=== PATIENT | female | born 1955 | race Caucasian/White ===

== ENCOUNTER 2016-09-30 15:58 | Emergency (ER) | payer OTHER ==
[~2016-09-30] VITALS: Ht 165.1 cm; Wt 46.3 kg
[~2016-09-30 15:58] MED LIST: ADVAIR 250-501 EACH INH; ADVAIR DISKUS 21 DSK PO; ALENDRONATE SOD70 M1 PO; ALPRAZOLAM0.5 M4 PO; ALPRAZOLAM0.5 MG PO; ALPRAZOLAM1 M2 PO; ASPIRIN81 M4 PO; ATIVAN0.5 M1 PO; BUSPIRONE HCL15 M1 PO; BUSPIRONE HCL15 MG PO; CARISOPRODOL350 MG PO; FENTANYL TR50 MCG/HR TOP; FLEXERIL10 MG PO; K-DUR20 MEQ PO; LEVOTHYROXIN0.075 M1 PO; LEVOTHYROXINE75 MCG PO; NAPROXEN250 M1 PO; NICOTINE T14 MG/24 H TOP; OMEPRAZOLE20 M2 PO; OXYCODONE HCL10 M2 PO; OXYCODONE HYDRO10 M1 PO; OXYCODONE HYDRO30 MG PO; PERCOCET 325 MG1 TA2 PO; PERCOCET 5-3251 EACH PO; PROAIR HFA0.09 MG/Ac PO; QUETIAPINE FUM200 M1 PO; QUETIAPINE FUMA50 MG PO; SEROQUEL (MONO200 MG PO; SPIRIVA 18 MCG18 MCG INH; TRAMADOL50 MG PO; TYLENOL500 MG PO; VENTOLIN HFA18 GM INH; VITAMIN D31000 UNI2 PO; ZOFRAN4 M1 PO; ZOFRAN4 M1 SL
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
[2016-09-30 16:20] VITALS: BP 108/55
[2016-09-30 17:17] LABS: ABSOLUTE BASOPHIL COUNT 0.2 /CUMM (0.0-0.2); ABSOLUTE EOSINOPHIL COUNT 0.2 /CUMM (0.0-0.7); ABSOLUTE GRANULOCYTE CT 5.9 /CUMM (1.4-6.5); ABSOLUTE LYMPH COUNT 2.8 /CUMM (1.2-3.4); ABSOLUTE MONOCYTE COUNT 0.6 /CUMM (0.10-0.60); BASOPHIL % 2.2 % (0.0-2.0); EOSINOPHIL % 1.9 % (0-5); GRANULOCYTE % 60.9 % (42.2-75.2); HEMATOCRIT 46.2 % (37-47); MEAN CORPUSCULAR HGB 33.5 PG (27.0-31.0); MEAN CORPUSCULAR HGB CONC 33.5 G/DL (33.0-37.0); MEAN CORPUSCULAR VOLUME 100.1 FL (81.0-99.0); MEAN PLATELET VOLUME 7.9 FL (7.4-10.4); PLATELET COUNT 321 /CUMM (130-400); RBC DISTRIBUTION WIDTH 14.9 % (11.5-14.5); RED BLOOD CELL CT 4.61 /CUMM (4.20-5.40); WHITE BLOOD CELL COUNT 9.7 /CUMM (4.8-10.8)
--- NOTE | 2016-09-30 17:32 | RADIOLOGY REPORT ---
EXAMINATION: XR HIP, LEFT CLINICAL INFORMATION: Left femur fracture. COMPARISON: MRI from today. TECHNIQUE: Frontal view of the pelvis with 2 additional views of the left hip. of the left hip. FINDINGS: The abnormal signal seen at the base of the left femoral neck which likely corresponds to a trabecular fracture has no corresponding finding visualized on this set of radiographs. No displaced fractures seen. No cortical disruption. The femoral heads are well-seated within their respective acetabula. There is irregularity of the left femoral head consistent with chronic degenerative change and possibly a component of avascular necrosis. Mild degenerative changes at the right hip. The pelvic ring is intact. The sacroiliac joints and pubic symphysis are intact. The bowel gas pattern is unremarkable. IMPRESSION: The trabecular fractures seen at the base of the left femoral neck on the associated MRI has no corresponding finding on this radiograph. No displaced fracture or cortical disruption. Chronic degenerative changes.
[2016-09-30 17:52] LABS: PT 9.9 SEC (9.4-12.5); PTT 34 SEC (25-37)
== END 2016-09-30 18:44 | disposition left against medical advice (07) ==
LOC: ERH 15:58
PROVIDERS: Emergency Medicine
DX: S72.045A Nondisplaced fracture of base of neck of left femur, initial encounter for closed fracture (principal); E03.9 Hypothyroidism, unspecified; J44.9 Chronic obstructive pulmonary disease, unspecified; W19.XXXA Unspecified fall, initial encounter
CPT/HCPCS: 36415; 73502-LT; 93005; 93010

== ENCOUNTER 2016-10-15 09:59 | Inpatient (IN) | payer OTHER, MEDICARE ==
[~2016-10-15] VITALS: Ht 157.5 cm; Wt 44.2 kg
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
--- NOTE | 2016-10-15 10:38 | NUR ---
PT BIBA FROM HOME S/P FOUND UNRESPONSIVE BY CLEANING LADY. PT WAS FOUND ON COUCH NOT RESPONDING TO VERBAL OR PAINFUL STIMULI. PT HAS HISTORY OF SEIZURES, UNSURE IF SEIZURE OCCURED BUT PER FRAME MAKER ?FOCAL SEIZURE. PT GIVEN ATIVAN EN ROUTE AND PT RECEIVED A TOTAL OF 0.8 MG OF NARCAN WITHOUT RESPONSE. PT 89% ON RA. PLACED ON 2L OXYGEN WITH IMPROVEMENT OF O2 SAT TO 96%.
--- NOTE | 2016-10-15 10:45 | NUR ---
PT TO CAT SCAN VIA STRETCHER WITH RN.
[2016-10-15 10:50] LABS: ABSOLUTE BASOPHIL COUNT 0 /CUMM (0.0-0.2); ABSOLUTE EOSINOPHIL COUNT 0 /CUMM (0.0-0.7); ABSOLUTE GRANULOCYTE CT 13.3 /CUMM (1.4-6.5); ABSOLUTE LYMPH COUNT 2.2 /CUMM (1.2-3.4); ABSOLUTE MONOCYTE COUNT 2.8 /CUMM (0.10-0.60); BASOPHIL % 0.3 % (0.0-2.0); EOSINOPHIL % 0 % (0-5); GRANULOCYTE % 72.5 % (42.2-75.2); HEMATOCRIT 56.2 % (37-47); MEAN CORPUSCULAR HGB 33.5 PG (27.0-31.0); MEAN CORPUSCULAR HGB CONC 33.9 G/DL (33.0-37.0); MEAN PLATELET VOLUME 8.7 FL (7.4-10.4); PLATELET COUNT 269 /CUMM (130-400); RBC DISTRIBUTION WIDTH 13.9 % (11.5-14.5); RED BLOOD CELL CT 5.68 /CUMM (4.20-5.40); WHITE BLOOD CELL COUNT 18.3 /CUMM (4.8-10.8)
--- NOTE | 2016-10-15 10:56 | NUR ---
RESP THERAPY AT BEDSIDE TO ATTEMPT ABG.
--- NOTE | 2016-10-15 11:00 | NUR ---
PT MEDICATED WITH THIRD DOSE OF NARCAN. NO RESPONSE
--- NOTE | 2016-10-15 11:06 | CT SCAN REPORT ---
EXAMINATION: CT HEAD AND CERVICAL SPINE. CLINICAL INFORMATION: Unresponsive. COMPARISON: CT head 01/23/2016. TECHNIQUE: Machine Cloth Measurer images were obtained. A CT acquisition of the head and cervical spine was performed without intravenous administration of contrast. Data was reformatted into multiplanar images at the acquisition workstation. DLP: 868.99 mGy-cm. FINDINGS: Head: There is chronic gliosis and encephalomalacia involving the right anterior temporal lobe. 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 There is no evidence of acute intercranial hemorrhage or abnormal extra-axial collection. Grossly no evidence of acute territorial infarct. The calvarium and skull base are intact. There is no mastoid or middle ear effusion. Visualized paranasal sinuses are well-aerated with the exception of a mucous retention cyst within the left maxillary sinus and the right nasal cavity. Globes and orbits are symmetric. Cervical spine: There is anatomic alignment and position of the vertebral bodies and posterior elements of the cervical spine in the sagittal dimension. Vertebral body heights are preserved. There is no evidence of acute fracture and no abnormal prevertebral soft tissue swelling. There is mild degenerative arthrosis of the atlantodental joint. There is a right central protrusion at C6-C7 that causes indentation of the ventral thecal sac and subtle abutment on the ventral surface of the cervical cord. Otherwise there is no evidence of canal compromise. Asymmetric uncovertebral joint hypertrophy and facet osteophyte spurring causes mild to moderate left neuroforaminal encroachment at C4-C5 and C5-C6. Emphysema is visualized within the apices of both lungs, greater on the right side. Calcified atheromatous plaque is visualized at both carotid bifurcations. Multiple metallic foreign bodies are visualized within the right submandibular region. IMPRESSION: Head: Stable examination. No evidence of acute territorial infarct or hemorrhage. 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 Cervical spine: No evidence of acute cervical spinal fracture. There is a right central protrusion at C6-C7 causing indentation of the ventral thecal sac and subtle abutment on the ventral surface of the cervical cord. Otherwise there is no evidence of canal compromise.
--- NOTE | 2016-10-15 11:12 | NUR ---
LAB AT BEDSIDE TO ATTEMPT BLOOD WORK.
--- NOTE | 2016-10-15 11:55 | NUR ---
PER LAB, THE PT/INR HEMOLYZED (DRAWN BY PHLEBOTOMISTS). PLEBOTOMISTS HAVE TO COME DRAW A SPECIAL WAY DUE TO HIGH HEMATOCRIT. LAB INFORMED PT WILL RECEIVE IV FLUIDS AND THEN LAB WILL BE CALLED BACK. ANMOL CHANEL AWARE OF ALL OF ABOVE.
--- NOTE | 2016-10-15 11:57 | NUR ---
PT NOTED TO BE VERY MINIMALLY RESPONSIVE TO PAINFUL STIMULI. STILL UNABLE TO COMMUNICATE OR FOLLOW ANY COMMANDS. VSS. WILL CONTINUE TO MONITOR.
--- NOTE | 2016-10-15 12:09 | NUR ---
CRITICAL TEST RESULTS [id number] MAXIMILIAN DODD 61 F TESTS AND RESULTS: LACTIC ACID 2.6 Results received and read back by: RAFAL DAY Results received date and time: 10/15/16 1209 The following provider was notified of the results, and read the results back: DARÍO COREA Notified date and time: 10/15/16 at 1210
--- NOTE | 2016-10-15 12:21 | NUR ---
2ND LITER INFUSING (RECEIVED 1 EN ROUTE TO HOSPIAL SO 3RD TOTAL). PT NOW MOANING WHEN HER NAME IS CALLED.
--- NOTE | 2016-10-15 12:24 | CT SCAN REPORT ---
EXAMINATION: CT CHEST WITHOUT CONTRAST CT ABDOMEN AND PELVIS WITHOUT CONTRAST CLINICAL INFORMATION: Patient unresponsive. COMPARISON: Previous chest x-rays, most recent August 2016. Chest, abdomen and pelvis CT January 2016, abdominal ultrasound January 2016 and CTA of the chest January 2016. TECHNIQUE: Axial images through the chest, abdomen and pelvis without oral or IV contrast. DLP: 328 mGy-cm FINDINGS: CHEST: There is evidence of emphysema. There is linear scarring or fibrosis and some traction bronchiectasis seen in the right upper lung adjacent to the major fissure. There is a spiculated nodule in the left upper lobe. This measures 1 x 1.5 cm (axial image 34, series 3). This has increased in size from the January 2016 exam. There is linear scarring or chronic subsegmental atelectasis seen in the posterior basal segment of the left lower lobe. This has a 7 x 10 mm nodular component (axial image 41, series 3) that is stable. There is minimal linear scarring or subsegmental atelectasis seen in the posterior and lateral basal segments of the right lower lobe. There is a tiny 3 mm nodule in the superior segment of the right lower lobe that may be calcified (axial image 123, series 5). There is a 3 x 5 mm calcified left lower lobe nodule (axial image 325, series 4). These nodules are stable. The previously identified right upper lobe airspace disease, bilateral pleural effusions and lower lobe compressive atelectasis has resolved. There is evidence of atherosclerotic disease and coronary artery calcification. The heart does not appear enlarged. The thoracic aorta is normal in caliber. There is question of abnormal or anomalous venous drainage of the left upper lobe to the left innominate vein. There is no pericardial effusion. There is no pleural effusion, pleural thickening or pneumothorax. No chest wall mass or axillary adenopathy is seen. ABDOMEN AND PELVIS: The liver, spleen, pancreas, and adrenal glands are normal. There is layering increased attenuation in the gallbladder. No definite gallstones are seen by CT. This could be better evaluated with ultrasound if clinically indicated. There is a small 2 mm right lower pole renal stone. The kidneys are otherwise normal. There is a Wilder catheter in the bladder. The bladder contains some urine and air. No pelvic mass is seen. There is apparent wall thickening of the distal right colon (axial image 78, series 2; coronal reconstructed image 36). It is uncertain whether this is a true finding or is artifactual related to peristalsis or contraction. Small and large bowel is unremarkable. The appendix is not identified. No ascites, adenopathy or free air is seen. The abdominal aorta is normal in caliber. There is evidence of atherosclerotic disease. No hernia is seen. Review at bone windows demonstrates subchondral sclerosis and irregular contour at the left femoral head questionable for AVN. There are degenerative changes to the spine and mild thoracolumbar scoliosis. There are T8, T9 and L1 vertebral body compression fractures. The T8 and T9 compression fractures are unchanged from January 2016. The L1 vertebral body compression fracture is new in the interval. The previously questioned sternal fracture is not appreciated. IMPRESSION: CHEST: 1. Interval increase in spiculated left upper lobe nodule measuring 1 x 1.5 cm. Appearance is concerning for neoplasm. 2. 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 3. Emphysema. Stable areas of scarring, fibrosis and atelectasis. Stable small calcified nodules. 4. Atherosclerotic disease and coronary artery calcification. ABDOMEN AND PELVIS: 1. Small right lower pole renal stone. 2. Increased attenuation seen dependently in the gallbladder. This could be better evaluated with ultrasound if clinically indicated. 3. Apparent area of wall thickening in the distal ascending colon. It is uncertain whether this is a true finding or is artifactual related to peristalsis or contraction. 4. Wilder catheter in the bladder. The bladder is not completely empty. New L1 vertebral body compression fracture from January 2016. Stable T8 and T9 vertebral body compression fractures. Question left femoral head AVN.
--- NOTE | 2016-10-15 12:48 | NUR ---
DR. REYEZ AT BEDSIDE FOR EVAL.
--- NOTE | 2016-10-15 13:41 | NUR ---
REPEAT LACTIC DRAWN AND SENT. PT OPENS EYES TO NAME CALLING AND THEN QUICKLY FALLS BACK INTO SLEEP
--- NOTE | 2016-10-15 13:58 | NUR ---
REPEAT LACTIC DRAWN AND SENT 2ND BC DRAWN AND WALKED TO LAB
--- NOTE | 2016-10-15 14:00 | NUR ---
LAB INFORMED THAT PT HAS RECEIVED MORE FLUIDS AND THAT THEY CAN DRAW BLUE TOP THE SPECIFIC WAY NEEDED BEFORE.
--- NOTE | 2016-10-15 14:50 | NUR ---
PT ATTEMPTING TO OPEN EYES WHEN CALLED, BUT NOT ABLE TO FOLLOW ANY OTHER COMMANDS. VSS. WILL CONTINUE TO MONITOR.
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
--- NOTE | 2016-10-15 15:18 | NUR ---
HOUSE STAFF AT BEDSIDE FOR EVAL.
--- NOTE | 2016-10-15 16:30 | NUR ---
PT CONTINUES TO BE MINIMALLY RESPONSIVE TO VERBAL STIMULI. VITAL SIGNS REMAIN STABLE. WILL CONTINUE TO MONITOR.
--- NOTE | 2016-10-15 17:02 | NUR ---
Emergency Dept UC Admit Note: To be admitted to [facility] by DR REYEZ with ? OVERDOSE as the diagnosis, to ICU, ROOM 109 location. Nursing Privacy Specialist and admitting notified 10/15/16 at [id number]
--- NOTE | 2016-10-15 17:17 | NUR ---
LABS DRAWN AND SENT BY THIS MST (SST,LAV)
--- NOTE | 2016-10-15 17:21 | NUR ---
PT ALERT AND ANSWERING QUESTIONS. ALERT TO SELF AND PLACE BUT NOT TO TIME. LAST THING PT REMEMBERS IS PASSING OUT, BUT IS UNSURE WHEN IT HAPPENED. PT HASN'T HAD AN APPEPTITE "I DON'T LIKE FOOD." PT CAN'T RECALL LAST TIME SHE ATE FOOD BUT REPORTS IT WAS MORE THAN TWO WEEKS AGO.
[2016-10-15 17:26] LABS: ABSOLUTE BASOPHIL COUNT 0 /CUMM (0.0-0.2); ABSOLUTE EOSINOPHIL COUNT 0 /CUMM (0.0-0.7); ABSOLUTE GRANULOCYTE CT 11.9 /CUMM (1.4-6.5); ABSOLUTE LYMPH COUNT 1.9 /CUMM (1.2-3.4); ABSOLUTE MONOCYTE COUNT 2.1 /CUMM (0.10-0.60); BASOPHIL % 0.2 % (0.0-2.0); EOSINOPHIL % 0 % (0-5); GRANULOCYTE % 74.8 % (42.2-75.2); MEAN CORPUSCULAR HGB 33.9 PG (27.0-31.0); MEAN CORPUSCULAR HGB CONC 33.9 G/DL (33.0-37.0); MEAN CORPUSCULAR VOLUME 100.1 FL (81.0-99.0); MEAN PLATELET VOLUME 8.3 FL (7.4-10.4); PLATELET COUNT 252 /CUMM (130-400); RED BLOOD CELL CT 4.75 /CUMM (4.20-5.40); WHITE BLOOD CELL COUNT 15.9 /CUMM (4.8-10.8)
[2016-10-15 17:33] LABS: HEMATOCRIT 47.5 % (37-47)
--- NOTE | 2016-10-15 17:38 | NUR ---
REPORT GIVEN TO MADDI CHERY.
[2016-10-15] MEDS ORDERED: LEVOTHYROXINE75 MCG PO (17:44)
[2016-10-15 18:00] VITALS: BP 112/82
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
[2016-10-15 20:00] VITALS: BP 129/58
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
[2016-10-15 22:00] VITALS: BP 102/58
[2016-10-16] VITALS: BP 118/72
[2016-10-16 04:00] VITALS: BP 100/80
[2016-10-16 05:22] LABS: ABSOLUTE BASOPHIL COUNT 0 /CUMM (0.0-0.2); ABSOLUTE EOSINOPHIL COUNT 0 /CUMM (0.0-0.7); ABSOLUTE GRANULOCYTE CT 8.8 /CUMM (1.4-6.5); ABSOLUTE LYMPH COUNT 3.4 /CUMM (1.2-3.4); ABSOLUTE MONOCYTE COUNT 1.4 /CUMM (0.10-0.60); BASOPHIL % 0.3 % (0.0-2.0); EOSINOPHIL % 0.2 % (0-5); GRANULOCYTE % 64.4 % (42.2-75.2); MEAN CORPUSCULAR HGB 33.8 PG (27.0-31.0); MEAN CORPUSCULAR HGB CONC 33.8 G/DL (33.0-37.0); MEAN CORPUSCULAR VOLUME 99.9 FL (81.0-99.0); MEAN PLATELET VOLUME 8.5 FL (7.4-10.4); PLATELET COUNT 213 /CUMM (130-400); RBC DISTRIBUTION WIDTH 14.5 % (11.5-14.5); RED BLOOD CELL CT 3.88 /CUMM (4.20-5.40); WHITE BLOOD CELL COUNT 13.6 /CUMM (4.8-10.8)
[2016-10-16 05:25] LABS: HEMATOCRIT 38.8 % (37-47)
--- NOTE | 2016-10-16 08:32 | PN- Resident CRCU ---
Subjective HPI/CRCU Issues: Patient was seen and examined. Patient look anxious, mildly agitated, and sleepy. Around midnight patient had a tachycardia to 156, however Patient denies chest pain, shortness breath, palpitation. She denies abdominal pain, nausea or vomiting. Patient started crying and asking to see a respiratory clinician to tell him that she doesn't want to . 24 Hour Events: Tachycardia to 156 around 12 AM Objective Vital Signs & I&O Last 8 Hrs of Vitals and I&O: Intake & Output 10/16 1600 10/16 0800 10/16 0000 Intake Total 1280.9 591 Output Total 300 1200 Balance 980.9 -609 Intake, IV 1180.9 231 Intake, Oral 100 360 Number 0 0 Bowel Movements Output, Urine 300 1200 Patient 44.169 kg Weight Laboratory Tests 10/16 10/15 10/15 10/15 0402 2320 2031 1830 Chemistry Sodium (137 - 145 mmol/L) 150 H 152 H 155 H Potassium (3.5 - 5.1 mmol/L) 3.9 4.1 3.1 L Chloride (98 - 107 mmol/L) 115 H 118 H 116 H Carbon Dioxide (22 - 30 mmol/L) 28 24 27 Anion Gap (5 - 16) 7 10 12 BUN (7 - 17 mg/dL) 29 H 38 H 41 H Creatinine (0.5 - 1.0 mg/dL) 0.6 0.6 0.6 Estimated GFR (>60 ml/min) > 60 > 60 > 60 BUN/Creatinine Ratio (7 - 25 %) 63.3 H Glucose (65 - 99 mg/dL) 127 H 104 H Calcium (8.4 - 10.2 mg/dL) 7.6 L 7.8 L Phosphorus (2.5 - 4.5 mg/dL) 1.9 L 3.1 Magnesium (1.6 - 2.3 mg/dL) 2.4 H 2.5 H Total Bilirubin (0.2 - 1.3 mg/dL) 1.1 1.4 H AST (14 - 36 U/L) 23 34 ALT (9 - 52 U/L) 27 26 Ammonia (9 - 30 umol/L) 12 Troponin I (< 0.11 ng/ml) 0.06 0.07 Albumin (3.5 - 5.0 g/dL) 2.9 L 3.5 Hematology CBC w Diff NO MAN DIFF REQ WBC (4.8 - 10.8 /CUMM) 13.6 H RBC (4.20 - 5.40 /CUMM) 3.88 L Hgb (12.0 - 16.0 G/DL) 13.1 Hct (37 - 47 %) 38.8 MCV (81.0 - 99.0 FL) 99.9 H MCH (27.0 - 31.0 PG) 33.8 H RDW (11.5 - 14.5 %) 14.5 Plt Count (130 - 400 /CUMM) 213 MPV (7.4 - 10.4 FL) 8.5 Gran % (42.2 - 75.2 %) 64.4 Lymphocytes % (20.5 - 51.1 %) 24.8 Monocytes % (1.7 - 9.3 %) 10.3 H Eosinophils % (0 - 5 %) 0.2 Basophils % (0.0 - 2.0 %) 0.3 Absolute Granulocytes (1.4 - 6.5 /CUMM) 8.8 H Absolute Lymphocytes (1.2 - 3.4 /CUMM) 3.4 Absolute Monocytes (0.10 - 0.60 /CUMM) 1.4 H Absolute Eosinophils (0.0 - 0.7 /CUMM) 0 Absolute Basophils (0.0 - 0.2 /CUMM) 0 PUBS MCHC (33.0 - 37.0 G/DL) 33.8 02/ 02/03 02/03 1712 1339 1125 Chemistry Sodium (137 - 145 mmol/L) 156 *H 154 H Potassium (3.5 - 5.1 mmol/L) 2.8 *L 3.3 L Chloride (98 - 107 mmol/L) 114 H 108 H Carbon Dioxide (22 - 30 mmol/L) 28 25 Anion Gap (5 - 16) 14 21 H BUN (7 - 17 mg/dL) 48 H 74 H Creatinine (0.5 - 1.0 mg/dL) 0.8 1.2 H Estimated GFR (>60 ml/min) > 60 45 L BUN/Creatinine Ratio (7 - 25 %) 60.0 H 61.7 H Glucose (65 - 99 mg/dL) 125 H Lactic Acid (0.7 - 2.1 mmol/L) 1.5 2.6 H Calcium (8.4 - 10.2 mg/dL) 9.4 Magnesium (1.6 - 2.3 mg/dL) 2.7 H Total Bilirubin (0.2 - 1.3 mg/dL) 1.6 H AST (14 - 36 U/L) 31 ALT (9 - 52 U/L) 26 Alkaline Phosphatase (<127 U/L) 108 Creatine Kinase (30 - 135 U/L) 586 H 565 H Troponin I (< 0.11 ng/ml) 0.12 *H 0.09 Total Protein (6.3 - 8.2 g/dL) 8.1 Albumin (3.5 - 5.0 g/dL) 4.9 Globulin (1.9 - 4.2 gm/dL) 3.2 Albumin/Globulin Ratio (1.1 - 2.2 %) 1.5 Coagulation APTT Cancelled Hematology CBC w Diff NO MAN DIFF REQ WBC (4.8 - 10.8 /CUMM) 15.9 H RBC (4.20 - 5.40 /CUMM) 4.75 Hgb (12.0 - 16.0 G/DL) 16.1 H Hct (37 - 47 %) 47.5 H MCV (81.0 - 99.0 FL) 100.1 H MCH (27.0 - 31.0 PG) 33.9 H RDW (11.5 - 14.5 %) 14.0 Plt Count (130 - 400 /CUMM) 252 MPV (7.4 - 10.4 FL) 8.3 Gran % (42.2 - 75.2 %) 74.8 Lymphocytes % (20.5 - 51.1 %) 11.8 L Monocytes % (1.7 - 9.3 %) 13.2 H Eosinophils % (0 - 5 %) 0 Basophils % (0.0 - 2.0 %) 0.2 Absolute Granulocytes (1.4 - 6.5 /CUMM) 11.9 H Absolute Lymphocytes (1.2 - 3.4 /CUMM) 1.9 Absolute Monocytes (0.10 - 0.60 /CUMM) 2.1 H Absolute Eosinophils (0.0 - 0.7 /CUMM) 0 Absolute Basophils (0.0 - 0.2 /CUMM) 0 PUBS MCHC (33.0 - 37.0 G/DL) 33.9 Toxicology Salicylates (0 - 20.0 mg/dL) < 1.0 Acetaminophen (10.0 - 30.0 ug/mL) < 10.0 L Serum Alcohol (<10 MG/DL) < 10.0 Exam General Appearance: awake, anxious, moderate distress Head: atraumatic, normal appearance Neck: supple Respiratory: lungs clear, increase RR, decreased breath sounds over all lungs area Cardiovascular: regular rate/rhythm Gastrointestinal: soft, non-tender, increase BS Extremities: no edema Current Medications: Current Medications Sig/Khloe Start time Last Medication Dose Route Stop Time Status Admin Acetaminophen 650 MG Q6P PRN 10/15 2100 AC IV Acetaminophen 650 MG Q6P PRN 10/15 1800 AC PO Acetaminophen 1,000 MG Q6P PRN 10/15 1800 DC IV Albuterol Sulfate 3 ML Q 3-4 HRS PRN PRN 10/15 1830 AC INH Albuterol Sulfate 2 PUF Q6P PRN 10/15 1745 AC INH Ampicillin Sodium/ 1,500 MG Q6 10/15 1630 AC 10/16 Sulbactam Sodium IV 10/17 0100 1150 Sodium Chloride 100 ML Aspirin 81 MG DAILY 10/16 1000 AC 10/16 PO 0923 Buspirone HCl 15 MG BID 10/15 2200 AC 10/16 PO 0923 Cyanocobalamin/ 1 BAG ONCE ONE 10/16 0845 DC 10/16 Thiamine/Pyridoxine IV 10/16 1644 0924 Dextrose/Water 1,000 ML Levothyroxine Sodium 37.5 MCG DAILY 10/16 1000 CAN IV Levothyroxine Sodium 0.075 MG DAILY AC 10/16 0700 AC 10/16 PO 0607 Lorazepam 2 MG Q6 10/15 2359 AC 10/16 PO 1150 Lorazepam 0 Q1P PRN 10/15 1730 AC IV Morphine Sulfate 1 MG Q6-PRN PRN 10/15 1800 AC 10/16 IV 1618 Phosphate 250 MG ONCE ONE 10/16 0830 DC 10/16 PO 10/16 0831 0923 Potassium Chloride 40 MEQ Q13H 10/16 2000 AC Dextrose/Water 1,000 ML IV Potassium Chloride 40 MEQ ONCE ONE 10/15 2030 DC 10/15 PO 10/15 Potassium Chloride 10 MEQ Q1H 10/15 1900 DC 10/15 IV 10/15 Potassium Chloride 40 MEQ ONCE ONE 10/15 1900 DC 10/15 PO 10/15 Potassium Chloride 40 MEQ Q8H 10/15 1630 AC 10/16 Dextrose/Water 1,000 ML IV 10/16 Quetiapine Fumarate 200 MG DAILY 10/16 1000 DC PO Quetiapine Fumarate 200 MG 2000 10/15 2100 AC 10/15 PO 2210 Vancomycin HCl 750 MG DAILY 10/17 1000 AC Sodium Chloride 250 ML IV 10/17 1059 Vancomycin HCl 1,000 MG DAILY 10/16 1000 DC Dextrose/Water 250 ML IV Vancomycin HCl 1,000 MG DAILY 10/16 0830 DC 10/16 Dextrose/Water 250 ML IV 0924 Vancomycin HCl 1,000 MG ONCE ONE 10/16 0330 CAN Dextrose/Water 250 ML IV 10/16 0429 Impression/Plan Impression/Problem List Impression: PLAN: Altered mental status: Patient has chief complaint of AMS. She was found down unresponsive for unknown period of time. Head CT negative for acute infarct or hemorrhage She has several possible etiology for his presentation: Alcohol intoxication, alcohol withdrawal seizures, CVA, suicide attempt, opiate abuse, and cannot rule out underlying infection/SIRS given that she had Tmax 100.4, elevated white count and tachycardia. Luis ox shows evidence of alcohol, cocaine, Tylenol, methadone, or opiates. She had lactic acid of 2.6 subsequently trended down to 1.5. Note that patient has previous admission with similar presentation requiring CPR in the field and intubation with pressors in ICU. * Continue CIWA * Thiamine and dextrose * utox * Seizure precaution * EEG on Tuesday as per neurology * Aspirin 81 mg by mouth daily for stroke prevention. * psych consult * swallow eval Hypernatremia: patient came in with potassium 154, next measured at 156 despite hydration. She is on D5W. Given patient's physical exam of dry mucous membranes and found altered and down for an unknown amount of time, most likely secondary to decreased by mouth intake. Note the patient presented with a large anion gap which subsequently normalized with hydration. Today sodium is 150. * Repeat BEP daily * Continue IV fluid Hypokalemia: Patient came in with potassium 3.3, and after fluid resuscitation 2.8. His potassium was repleted and today it's 3.9 * Potassium will be repleted when necessary * Check magnesium-replete as necessary Elevated Troponin: The can troponin was 0.12. However we ruled out acute coronary syndrome by trending down troponin and EKG Femoral neck fracture: Pt had recent admission on Sep 30 for femoral neck fracture. She left AMA without any intervention. CT at this time reads "Question left femoral head AVN." * Ortho Consult if necessary Hypothyroidism: * Continue Synthroid Leukocytosis: patient came in with white count 18.3, subsequently 15.9. Unsure of this is secondary to infectious or reactionary leukocytosis. However patient was found down, history of withdrawal seizures could predispose her to aspiration. MAXIMUM TEMPERATURE in ED recorded 100.4. Today she received 1 dose of vancomycin. * Patient will be on ampicillin 1500 every 6 IV Lung nodule: Prior chest CT -Interval increase in spiculated left upper lobe nodule measuring 1 x 1.5 cm. Appearance is concerning for neoplasm. * We will follow pulmonology recommendation Acute renal failure: Patient has history of creatinine 0.4 and 0.5. At time of admission creatinine was 1.2. Which is significantly elevated for her. However , repeat BEP after hydration shows creatinine 0.6. * Hydrate and continue to monitor. Full code Nothing by mouth Chemical DVT prophylaxis Problem List: 1. Leukocytosis Pain Ratin Tomorrow's Labs & Rationales: cbc and icu bundle Plan DVT/Prophylaxis: mechanical, pharmacological
--- NOTE | 2016-10-16 11:32 | PN- Pulmonary ---
Subjective HPI/Critical Care Issues: Doing much better. More awake. No seizure. No fever, chills Once to eat. Oxygen saturation 92%. Continues to be on IV fluids. Review of symptoms otherwise unremarkable. No headache, no nausea, vomiting. Objective Current Medications: Current Medications Sig/Khloe Start time Last Medication Dose Route Stop Time Status Admin Acetaminophen 650 MG Q6P PRN 10/15 2100 AC IV Acetaminophen 650 MG Q6P PRN 10/15 1800 AC PO Acetaminophen 1,000 MG Q6P PRN 10/15 1800 DC IV Albuterol Sulfate 3 ML Q 3-4 HRS PRN PRN 10/15 1830 AC INH Albuterol Sulfate 2 PUF Q6P PRN 10/15 1745 AC INH Ampicillin Sodium/ 0 .STK-MED ONE 10/15 1712 DC Sulbactam Sodium .ROUTE Ampicillin Sodium/ 1,500 MG Q6 10/15 1630 AC 10/16 Sulbactam Sodium IV 0607 Sodium Chloride 100 ML Aspirin 81 MG DAILY 10/16 1000 AC 10/16 PO 0923 Buspirone HCl 15 MG BID 10/15 2200 AC 10/16 PO 0923 Cyanocobalamin/ 1 BAG ONCE ONE 10/16 0845 AC 10/16 Thiamine/Pyridoxine IV 10/16 1644 0924 Dextrose/Water 1,000 ML Levothyroxine Sodium 0.075 MG DAILY 10/16 1000 CAN PO Levothyroxine Sodium 37.5 MCG DAILY 10/16 1000 CAN IV Levothyroxine Sodium 0.075 MG DAILY AC 10/16 0700 AC 10/16 PO 0607 Lorazepam 2 MG Q6 10/15 2359 AC 10/16 PO 0614 Lorazepam 0 Q1P PRN 10/15 1730 AC IV Morphine Sulfate 1 MG Q6-PRN PRN 10/15 1800 AC 10/16 IV 0500 Phosphate 250 MG ONCE ONE 10/16 0830 DC 10/16 PO 10/16 0831 0923 Potassium Chloride 40 MEQ ONCE ONE 10/15 2030 DC 10/15 PO 10/15 Potassium Chloride 10 MEQ Q1H 10/15 1900 DC 10/15 IV 10/15 Potassium Chloride 40 MEQ ONCE ONE 10/15 1900 DC 10/15 PO 10/15 1902006 Potassium Chloride 40 MEQ Q8H 10/15 1630 AC 10/16 Dextrose/Water 1,000 ML IV 0925 Quetiapine Fumarate 200 MG DAILY 10/16 1000 DC PO Quetiapine Fumarate 200 MG 2000 10/15 2100 AC 10/15 PO 2210 Sodium Chloride 1,000 ML BOLUS ONE 10/15 1215 DC 10/15 IV 10/15 1314 1221 Sodium Chloride 1,000 ML BOLUS ONE 10/15 1115 DC 10/15 IV 10/15 1214 1147 Thiamine HCl 100 MG ONCE ONE 10/15 1730 DC IM 10/15 1731 Vancomycin HCl 750 MG DAILY 10/17 1000 AC Sodium Chloride 250 ML IV Vancomycin HCl 1,000 MG DAILY 10/16 1000 DC Dextrose/Water 250 ML IV Vancomycin HCl 1,000 MG DAILY 10/16 0830 DC 10/16 Dextrose/Water 250 ML IV 0924 Vancomycin HCl 1,000 MG ONCE ONE 10/16 0330 CAN Dextrose/Water 250 ML IV 10/16 0429 Vital Signs & I&O Last 24 Hrs of Vitals and I&O: Laboratory Tests 10/16 10/15 10/15 10/15 0402 2320 2031 1830 Chemistry Sodium (137 - 145 mmol/L) 150 H 152 H 155 H Potassium (3.5 - 5.1 mmol/L) 3.9 4.1 3.1 L Chloride (98 - 107 mmol/L) 115 H 118 H 116 H Carbon Dioxide (22 - 30 mmol/L) 28 24 27 Anion Gap (5 - 16) 7 10 12 BUN (7 - 17 mg/dL) 29 H 38 H 41 H Creatinine (0.5 - 1.0 mg/dL) 0.6 0.6 0.6 Estimated GFR (>60 ml/min) > 60 > 60 > 60 BUN/Creatinine Ratio (7 - 25 %) 63.3 H Glucose (65 - 99 mg/dL) 127 H 104 H Calcium (8.4 - 10.2 mg/dL) 7.6 L 7.8 L Phosphorus (2.5 - 4.5 mg/dL) 1.9 L 3.1 Magnesium (1.6 - 2.3 mg/dL) 2.4 H 2.5 H Total Bilirubin (0.2 - 1.3 mg/dL) 1.1 1.4 H AST (14 - 36 U/L) 23 34 ALT (9 - 52 U/L) 27 26 Ammonia (9 - 30 umol/L) 12 Troponin I (< 0.11 ng/ml) 0.06 0.07 Albumin (3.5 - 5.0 g/dL) 2.9 L 3.5 Hematology CBC w Diff NO MAN DIFF REQ WBC (4.8 - 10.8 /CUMM) 13.6 H RBC (4.20 - 5.40 /CUMM) 3.88 L Hgb (12.0 - 16.0 G/DL) 13.1 Hct (37 - 47 %) 38.8 MCV (81.0 - 99.0 FL) 99.9 H MCH (27.0 - 31.0 PG) 33.8 H RDW (11.5 - 14.5 %) 14.5 Plt Count (130 - 400 /CUMM) 213 MPV (7.4 - 10.4 FL) 8.5 Gran % (42.2 - 75.2 %) 64.4 Lymphocytes % (20.5 - 51.1 %) 24.8 Monocytes % (1.7 - 9.3 %) 10.3 H Eosinophils % (0 - 5 %) 0.2 Basophils % (0.0 - 2.0 %) 0.3 Absolute Granulocytes (1.4 - 6.5 /CUMM) 8.8 H Absolute Lymphocytes (1.2 - 3.4 /CUMM) 3.4 Absolute Monocytes (0.10 - 0.60 /CUMM) 1.4 H Absolute Eosinophils (0.0 - 0.7 /CUMM) 0 Absolute Basophils (0.0 - 0.2 /CUMM) 0 PUBS MCHC (33.0 - 37.0 G/DL) 33.8 10/15 10/15 10/15 1712 1339 1125 Chemistry Sodium (137 - 145 mmol/L) 156 *H 154 H Potassium (3.5 - 5.1 mmol/L) 2.8 *L 3.3 L Chloride (98 - 107 mmol/L) 114 H 108 H Carbon Dioxide (22 - 30 mmol/L) 28 25 Anion Gap (5 - 16) 14 21 H BUN (7 - 17 mg/dL) 48 H 74 H Creatinine (0.5 - 1.0 mg/dL) 0.8 1.2 H Estimated GFR (>60 ml/min) > 60 45 L BUN/Creatinine Ratio (7 - 25 %) 60.0 H 61.7 H Glucose (65 - 99 mg/dL) 125 H Lactic Acid (0.7 - 2.1 mmol/L) 1.5 2.6 H Calcium (8.4 - 10.2 mg/dL) 9.4 Magnesium (1.6 - 2.3 mg/dL) 2.7 H Total Bilirubin (0.2 - 1.3 mg/dL) 1.6 H AST (14 - 36 U/L) 31 ALT (9 - 52 U/L) 26 Alkaline Phosphatase (<127 U/L) 108 Creatine Kinase (30 - 135 U/L) 586 H 565 H Troponin I (< 0.11 ng/ml) 0.12 *H 0.09 Total Protein (6.3 - 8.2 g/dL) 8.1 Albumin (3.5 - 5.0 g/dL) 4.9 Globulin (1.9 - 4.2 gm/dL) 3.2 Albumin/Globulin Ratio (1.1 - 2.2 %) 1.5 Coagulation APTT Cancelled Hematology CBC w Diff NO MAN DIFF REQ WBC (4.8 - 10.8 /CUMM) 15.9 H RBC (4.20 - 5.40 /CUMM) 4.75 Hgb (12.0 - 16.0 G/DL) 16.1 H Hct (37 - 47 %) 47.5 H MCV (81.0 - 99.0 FL) 100.1 H MCH (27.0 - 31.0 PG) 33.9 H RDW (11.5 - 14.5 %) 14.0 Plt Count (130 - 400 /CUMM) 252 MPV (7.4 - 10.4 FL) 8.3 Gran % (42.2 - 75.2 %) 74.8 Lymphocytes % (20.5 - 51.1 %) 11.8 L Monocytes % (1.7 - 9.3 %) 13.2 H Eosinophils % (0 - 5 %) 0 Basophils % (0.0 - 2.0 %) 0.2 Absolute Granulocytes (1.4 - 6.5 /CUMM) 11.9 H Absolute Lymphocytes (1.2 - 3.4 /CUMM) 1.9 Absolute Monocytes (0.10 - 0.60 /CUMM) 2.1 H Absolute Eosinophils (0.0 - 0.7 /CUMM) 0 Absolute Basophils (0.0 - 0.2 /CUMM) 0 PUBS MCHC (33.0 - 37.0 G/DL) 33.9 Toxicology Salicylates (0 - 20.0 mg/dL) < 1.0 Acetaminophen (10.0 - 30.0 ug/mL) < 10.0 L Serum Alcohol (<10 MG/DL) < 10.0 10/15 10/15 1055 1040 Blood Gas pH (7.35 - 7.45 PH) 7.43 pCO2 (35 - 45 TORR) 35 pO2 (80 - 100 TORR) 86 HCO3 (21 - 28 MEQ/L) 22 ABG O2 Sat (Measured) (>96.0 %) 95.0 L P-50 (Temp Corrected) N Carboxyhemoglobin (1.5 - 5.0 %) 1.3 L O2 Concentration % 2L Temperature (97.0 - 100.0 FARH) 99.3 O2 Delivery Method NC Miscellaneous Phlebotomy Draw Site RIGHT BRACHIAL Toxicology Urine Opiates Screen (>2000 NG/ML) < 100.00 Methadone Screen (>300 NG/ML) < 40 Barbiturate Screen (>200 NG/ML) < 60 Ur Phencyclidine Scrn (>25 NG/ML) < 6.00 Amphetamines Screen (>1000 NG/ML) < 100 U Benzodiazepines Scrn (>200 NG/ML) < 85 Urine Cocaine Screen (>300 NG/ML) < 50 Urine Cannabis Screen (>50 NG/ML) 21.90 Urines Urine Color (YEL,AMB,STR) ONEIL Urine Clarity (CLEAR) CLEAR Urine pH (5.0 - 8.0) 6.0 Ur Specific [place] (1.001 - 1.035) 1.025 Urine Protein (NEG,<30 MG/DL) 100 H Urine Ketones (NEG) 40 H Urine Nitrite (NEG) NEG Urine Bilirubin (NEG) POS@ICTO H Urine Urobilinogen (0.1 - 1.0 EU/dl) 1.0 Ur Leukocyte Esterase (NEG) NEG Ur Microscopic SEDIMENT EXAMINED Urine RBC (0 - 5 /HPF) 1-3 Urine WBC (0 - 2 /HPF) RARE Ur Epithelial Cells (NONE,FEW) MANY H Hyaline Casts (0/LPF) MANY H Urine Mucus (FEW,NONE) MOD H Urine Hemoglobin (NEG) TRACE-LYSED Urine Glucose (N MG/DL) NEG 10/15 1038 Hematology CBC w Diff MAN DIFF ORDERED WBC (4.8 - 10.8 /CUMM) 18.3 H RBC (4.20 - 5.40 /CUMM) 5.68 H Hgb (12.0 - 16.0 G/DL) 19.0 H Hct (37 - 47 %) 56.2 H MCV (81.0 - 99.0 FL) 99.0 MCH (27.0 - 31.0 PG) 33.5 H RDW (11.5 - 14.5 %) 13.9 Plt Count (130 - 400 /CUMM) 269 MPV (7.4 - 10.4 FL) 8.7 Gran % (42.2 - 75.2 %) 72.5 Lymphocytes % (20.5 - 51.1 %) 12.0 L Monocytes % (1.7 - 9.3 %) 15.2 H Eosinophils % (0 - 5 %) 0 Basophils % (0.0 - 2.0 %) 0.3 Absolute Granulocytes (1.4 - 6.5 /CUMM) 13.3 H Absolute Lymphocytes (1.2 - 3.4 /CUMM) 2.2 Absolute Monocytes (0.10 - 0.60 /CUMM) 2.8 H Absolute Eosinophils (0.0 - 0.7 /CUMM) 0 Absolute Basophils (0.0 - 0.2 /CUMM) 0 Platelet Estimate (ADEQUATE) ADEQUATE Normocytic RBCs VERIFIED Normochromic RBCs VERIFIED PUBS MCHC (33.0 - 37.0 G/DL) 33.9 Microbiology Date/Time Procedure - Status Source Growth 10/15 1814 Surveillance Culture - RECD UPPER RESP 10/15 181 Surveillance Culture - RECD GI 10/15 1356 Blood Culture - RECD BLOOD 10/15 1125 Blood Culture - RECD BLOOD 10/15 1040 Urine Culture - RES URINE ROUT Vital Signs Date Time Temp Pulse Resp B/P Pulse O2 O2 Flow FiO2 Ox Delivery Rate 10/16 0800 98 Nasal 2.0L Cannula 10/16 0400 97.6 97 18 100/80 10/16 0400 96 Nasal 2.0L Cannula 10/16 0000 97.2 110 19 118/72 02/04 0000 97.2 110 19 118/72 95 Nasal 2.0L Cannula 10/16 0000 98 Nasal 2.0L Cannula 10/15 2200 98.5 106 29 102/58 10/15 1999 98.3 92 23 129/58 10/15 1999 96 Nasal 2.0L Cannula 10/15 1845 Nasal 2.0L Cannula 10/15 1800 98.7 105 30 112/82 02/ 1800 98 Nasal 2.0L Cannula / 1800 98.7 105 20 112/82 98 Nasal 2.0L Cannula 10/15 1724 93 Nasal 2.0L Cannula 10/15 1718 100.4 109 16 151/86 93 Nasal 1.0L Cannula 10/15 1611 101.0 101 16 154/82 95 Nasal 1.0L Cannula 10/15 1449 100.5 98 20 155/84 98 Nasal 2.0L Cannula 10/15 1404 99.9 108 18 165/79 96 Nasal 2.0L Cannula / 1258 99.3 102 20 155/73 98 Nasal 2.0L Cannula 10/15 1220 100.0 98 20 150/86 100 Nasal 2.0L Cannula 10/15 1149 99.9 106 22 153/70 98 Nasal 2.0L Cannula 10/15 1125 100.3 110 25 132/87 99 Nasal 2.0L Cannula Intake & Output 10/16 1600 02/04 0800 02/ 0000 Intake Total 1280.9 591 Output Total 300 1200 Balance 980.9 -609 Intake, IV 1180.9 231 Intake, Oral 100 360 Number 0 0 Bowel Movements Output, Urine 300 1200 Patient 97 lb 6 oz Weight SIGNIFICANT DATA BUN/creatinine is stable. Renal function is now resolved. Sodium is down to 150 Ativan gap is normal. Lactic acid is normal. Her liver enzymes are unremarkable. Troponin is unremarkable. White count down to 13. CT scan of the abdomen and pelvis and chest as noted yesterday, which showed that she probably does have lung cancer with slight thickening of the colon. Cultures so far are unremarkable Impression/Plan Impression/Plan Impression/Plan: Physical exam: Lethargic, barely obeying command to move all extremities, no lateralizing signs RS: Clear lungs bilaterally CVS: RRR, No murmurs Neurological: Pin point pupils, no obvious weakness, responds after exxessive stimulation Abdomen: Normal contour no tenderness Extremities: No C,C or E Labs: WBC 50054, H&H 19.0/56.2, Na 154, BUN 24, Creatinine 1.2, UA negative, Utox negative, CPK 654, AB.43/35/86/95 EKG: Tachycardia, PVC with diffuse TWI on multiple leads, QTC 445 CT scan of the chest abdomen and pelvis reviewed which shows that she has an increasing spiculated left upper lobe nodule which is now 1.5 cm 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 The left innominate vein. She has significant emphysema with bilateral fibrosis atelectasis with small calcified lymph nodes with significant atherosclerosis. She also has a small renal stone with the mild thickening of the distal ascending colon with Wilder catheter with the new L1 vertebral compression fracture with previous multiple compression fractures of the thoracic spine and avascular necrosis of the femoral head. IMPRESSION This is a 61-year-old lady with history of depression, moderate to severe COPD, chronic alcohol use, chronic pain syndrome, previous hep C, multiple medication use, previous history of anxiety and depression and previous probable suicide attempt, hypothyroidism, significant alcohol use with past alcohol withdrawal, seizure, mainly related to alcohol withdrawal, osteoporosis with multiple compression fractures, previous admission to [facility] with unresponsive state, status post CPR with rib fractures, prolonged intubation with multiple infections in the lung, previous lung nodule highly suggestive of malignancy but patient has been noncompliant with follow-up, previous sternal fracture, avascular necrosis of the hip, now comes in with * Improving. Altered mental status with metabolic encephalopathy, most likely related to polypharmacy with significant hypernatremia, with hypovolemia * Previous history of alcoholism with no active withdrawal at this time. Pt may have had a seizure per ems record. Recent history of significant alcohol use * Probable aspiration pneumonitis. * Resolved Acute kidney injury. * Resolved elevated hemoglobin with erythrocytosis, most likely related to severe hypoxemia and dehydration. * Severe COPD * Lung nodule which is increasing in size highly suggestive of lung malignancy. * Significant malnutrition. * Previous cephalic vein thrombosis with no evidence suggestive of acute venous thromboembolism. * Previous sepsis with Klebsiella and MRSA probably from skin and pneumonia with negative ADRI for any endocarditis. No clinical evidence suggestive of any infection, but patient may have had aspiration * Multiple compression fractures with severe osteoporosis with avascular necrosis of the hip. * Depression, anxiety Poor overall performance status. RECOMMENDATION. Stable to go to the floor Continue intravenous fluids at 75 mL per hour Seizure precautions Discontinue her intravenous antibiotics after today. And watch her off antibiotics Keep her head of bed elevated. Oxygen to keep sat at 91 percent Panculture. Swallow eval and if she passes start by mouth Repeat LFTs in the morning When necessary low-dose morphine and Ativan to prevent any alcohol withdrawal seizures. [facility] protocol Psychiatric evaluation Patient certainly has most likely lung malignancy. This needs to be followed. We will discuss with the patient again about this. Patient has been noncompliant , and was made aware of all risks PT is critically ill 40 MINS
[2016-10-16 16:00] VITALS: BP 98/64
[2016-10-16 20:00] VITALS: BP 98/64
[2016-10-16 22:00] VITALS: BP 90/64
[2016-10-16 22:47] VITALS: BP 90/64
[2016-10-17] VITALS (7 sets, daily range): BP systolic 82–100; BP diastolic 50–62
--- NOTE | 2016-10-17 07:02 | NUR ---
B/P 82/60, HR 90, SLIGHTLY LOWER B/P THAN NORMAL. MD NOTIFIED.
[2016-10-17 08:43] LABS: ABSOLUTE BASOPHIL COUNT 0 /CUMM (0.0-0.2); ABSOLUTE EOSINOPHIL COUNT 0.3 /CUMM (0.0-0.7); ABSOLUTE GRANULOCYTE CT 7.6 /CUMM (1.4-6.5); ABSOLUTE LYMPH COUNT 2.7 /CUMM (1.2-3.4); BASOPHIL % 0.1 % (0.0-2.0); EOSINOPHIL % 2.5 % (0-5); GRANULOCYTE % 66.1 % (42.2-75.2); HEMATOCRIT 39.6 % (37-47); MEAN CORPUSCULAR HGB 34.1 PG (27.0-31.0); MEAN CORPUSCULAR HGB CONC 33.5 G/DL (33.0-37.0); MEAN CORPUSCULAR VOLUME 101.8 FL (81.0-99.0); MEAN PLATELET VOLUME 9.6 FL (7.4-10.4); PLATELET COUNT 175 /CUMM (130-400); RBC DISTRIBUTION WIDTH 14.2 % (11.5-14.5); RED BLOOD CELL CT 3.89 /CUMM (4.20-5.40)
--- NOTE | 2016-10-17 09:12 | PN- Housestaff ---
Subjective Follow-up For: Polypharmacy Altered mental status Subjective: I have seen and examined the patient. Patient is still drowsy. Alert and oriented 2. Patient is hungry. Vital signs were stable. Review of Systems Constitutional: Reports: see HPI. Objective Last 24 Hrs of Vital Signs/I&O Vital Signs Date Time Temp Pulse Resp B/P Pulse O2 O2 Flow FiO2 Ox Delivery Rate 10/17 0749 92 90/10/17 0711 97.6 90 20 8260 96 Nasal 2.0L Cannula 10/17 0600 97.6 90 20 8260 10/17 0200 97.9 90 20 10/17 0000 96 Nasal 2.0L Cannula 10/16 2247 97.4 90 20 99 Nasal 2.0L Cannula 10/16 2200 97.4 90 20 10/16 2000 96.4 90 20 10/16 2000 94 Nasal 2.0L Cannula 10/16 1600 96 Nasal 2.0L Cannula 10/16 1600 98.6 94 20 96 Nasal 2.0L Cannula 10/16 1258 98 Nasal 2.0L Cannula Intake & Output 10/17 1600 10/17 0800 10/17 0000 Intake Total 720 270 Output Total 600 1050 Balance 120 -780 Intake, IV 600 150 Intake, Oral 120 120 Output, Urine 600 1050 Physical Exam General Appearance: Cooperative, No Acute Distress Cardiovascular: Regular Rate, No Murmurs Lungs: Clear to Auscultation, Normal Air Movement Abdomen: Normal Bowel Sounds, Soft, No Tenderness, No Hepatospenomegaly, No Masses Current Medications: Current Medications Sig/Khloe Start time Last Medication Dose Route Stop Time Status Admin Acetaminophen 650 MG Q6P PRN 10/15 2100 AC IV Acetaminophen 650 MG Q6P PRN 10/15 1800 AC PO Albuterol Sulfate 3 ML Q 3-4 HRS PRN PRN 10/15 1830 AC INH Albuterol Sulfate 2 PUF Q6P PRN 10/15 1745 AC INH Ampicillin Sodium/ 1,500 MG Q6 10/15 1630 DC 10/17 Sulbactam Sodium IV 10/17 0100 0015 Sodium Chloride 100 ML Aspirin 81 MG DAILY 10/16 1000 AC 10/17 PO 0928 Buspirone HCl 15 MG BID 10/15 2200 AC 10/17 PO 0928 Cyanocobalamin/ 1 BAG ONCE ONE 10/16 0845 DC 10/16 Thiamine/Pyridoxine IV 10/16 1644 0924 Dextrose/Water 1,000 ML Levothyroxine Sodium 0.075 MG DAILY AC 10/16 0700 AC 10/17 PO 0522 Lorazepam 2 MG Q6 10/15 2359 AC 10/17 PO 0524 Lorazepam 0 Q1P PRN 10/15 1730 AC IV Morphine Sulfate 1 MG Q6-PRN PRN 10/15 1800 AC 10/17 IV 0530 Potassium Chloride 40 MEQ Q13H 10/16 1999 AC 10/16 Dextrose/Water 1,000 ML IV 1958 Potassium Chloride 40 MEQ Q8H 10/15 1630 DC 10/16 Dextrose/Water 1,000 ML IV 10/16 Quetiapine Fumarate 200 MG 10/15 2100 AC 10/16 PO 1958 Vancomycin HCl 750 MG DAILY 10/17 1000 CAN Sodium Chloride 250 ML IV 10/17 1059 Assessment/Plan Assessment: Patient has chief complaint of AMS. She was found down unresponsive for unknown period of time. Head CT negative for acute infarct or hemorrhage She has several possible etiology for his presentation: Alcohol intoxication, alcohol withdrawal seizures, CVA, suicide attempt, opiate abuse, and cannot rule out underlying infection/SIRS given that she had Tmax 100.4, elevated white count and tachycardia. Holt ox shows evidence of alcohol, cocaine, Tylenol, methadone , or opiates. She had lactic acid of 2.6 subsequently trended down to 1.5. Note that patient has previous admission with similar presentation requiring CPR in the field and intubation with pressors in ICU, subsequently improved and Tuesday and transferred to general floor Altered mental status/alcohol withdrawal * Continue CIWA * Thiamine and dextrose * utox * Seizure precaution * EEG on Tuesday as per neurology * Aspirin 81 mg by mouth daily for stroke prevention. * psych consult * Psych evaluation recommended. Diet for now Hypernatremia: * Sodium today was 141 * We will continue with IV fluids Hypokalemia: * Continue daily BEP * K was within normal limits Elevated Troponin: * one time troponin was 0.12. * we ruled out acute coronary syndrome by trending down troponin and EKG Femoral neck fracture: Pt had recent admission on Sep 30 for femoral neck fracture. She left AMA without any intervention. CT at this time reads "Question left femoral head AVN." * Ortho Consult if necessary Hypothyroidism: * Continue Synthroid Leukocytosis: * trending down * ampicillin was dced Lung nodule: * Prior chest CT -Interval increase in spiculated left upper lobe nodule measuring 1 x 1.5 cm. Appearance is concerning for neoplasm. * We will follow pulmonology recommendation Acute renal failure: * resolved * Hydrate and continue to monitor. Full code Problem List: 1. Acute respiratory failure with hypoxia Pain Ratin Pain Location: no pain Pain Goal: Remain pain free Pain Plan: same Tomorrow's Labs & Rationales: cbc bep cbc bep
[2016-10-17 09:17] LABS: WHITE BLOOD CELL COUNT 11.5 /CUMM (4.8-10.8)
--- NOTE | 2016-10-17 12:17 | PN- Pulmonary ---
Subjective HPI/Critical Care Issues: I have seen and examined the patient. Patient is still drowsy. Alert and oriented 2. and she is hungry. Vital signs were stable. Review of Systems Constitutional: Reports: see HPI. Objective Current Medications: Current Medications Sig/Khloe Start time Last Medication Dose Route Stop Time Status Admin Acetaminophen 650 MG Q6P PRN 10/15 2100 AC IV Acetaminophen 650 MG Q6P PRN 10/15 1800 AC PO Albuterol Sulfate 3 ML Q 3-4 HRS PRN PRN 10/15 1830 AC INH Albuterol Sulfate 2 PUF Q6P PRN 10/15 1745 AC INH Ampicillin Sodium/ 1,500 MG Q6 10/15 1630 DC 10/17 Sulbactam Sodium IV 10/17 0100 0015 Sodium Chloride 100 ML Aspirin 81 MG DAILY 10/16 1000 AC 10/17 PO 0928 Buspirone HCl 15 MG BID 10/15 2200 AC 10/17 PO 0928 Cyanocobalamin/ 1 BAG ONCE ONE 10/16 0845 DC 10/16 Thiamine/Pyridoxine IV 10/16 1644 0924 Dextrose/Water 1,000 ML Enoxaparin Sodium 40 MG DAILY 10/17 1112 AC SC Levothyroxine Sodium 0.075 MG DAILY AC 10/16 0700 AC 10/17 PO 0522 Lorazepam 2 MG Q6 10/15 2359 AC 10/17 PO 1149 Lorazepam 0 Q1P PRN 10/15 1730 AC IV Morphine Sulfate 1 MG Q6-PRN PRN 10/15 1800 AC 10/17 IV 1149 Potassium Chloride 40 MEQ Q13H 10/16 2000 AC 10/17 Dextrose/Water 1,000 ML IV 1138 Potassium Chloride 40 MEQ Q8H 10/15 1630 DC 10/16 Dextrose/Water 1,000 ML IV 10/16 195 195 Quetiapine Fumarate 200 MG 10/15 2100 AC 10/16 PO 1959 Vancomycin HCl 750 MG DAILY 10/17 1000 CAN Sodium Chloride 250 ML IV 10/17 1059 Vital Signs & I&O Last 24 Hrs of Vitals and I&O: Vital Signs Date Time Temp Pulse Resp B/P Pulse O2 O2 Flow FiO2 Ox Delivery Rate 10/17 0749 92 90/60 10/17 0711 97.6 90 20 82/60 96 Nasal 2.0L Cannula 10/17 06 97.6 90 20 82/60 10/17 0200 97.9 90 20 90/62 / 0000 96 Nasal 2.0L Cannula 10/16 2247 97.4 90 20 /64 99 Nasal 2.0L Cannula 10/16 2200 97.4 90 20 90/64 10/16 2000 96.4 90 20 98/64 10/16 2000 94 Nasal 2.0L Cannula 10/16 1600 96 Nasal 2.0L Cannula 10/16 1600 98.6 94 20 64 96 Nasal 2.0L Cannula 10/16 1258 98 Nasal 2.0L Cannula Intake & Output 10/17 1600 10/17 0800 10/17 0000 Intake Total 720 270 Output Total 600 1050 Balance 120 -780 Intake, IV 600 150 Intake, Oral 120 120 Output, Urine 600 1050 Impression/Plan Impression/Plan Impression/Plan: Physical exam: Lethargic, barely obeying command to move all extremities, no lateralizing signs RS: Clear lungs bilaterally CVS: RRR, No murmurs Neurological: Pin point pupils, no obvious weakness, responds after exxessive stimulation Abdomen: Normal contour no tenderness Extremities: No C,C or E Labs: WBC 24179, H&H 19.0/56.2, Na 154, BUN 24, Creatinine 1.2, UA negative, Utox negative, CPK 654, AB.43/35/86/95 EKG: Tachycardia, PVC with diffuse TWI on multiple leads, QTC 445 CT scan of the chest abdomen and pelvis reviewed which shows that she has an increasing spiculated left upper lobe nodule which is now 1.5 cm 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 The left innominate vein. She has significant emphysema with bilateral fibrosis atelectasis with small calcified lymph nodes with significant atherosclerosis. She also has a small renal stone with the mild thickening of the distal ascending colon with Wilder catheter with the new L1 vertebral compression fracture with previous multiple compression fractures of the thoracic spine and avascular necrosis of the femoral head. IMPRESSION This is a 61-year-old lady with history of depression, moderate to severe COPD, chronic alcohol use, chronic pain syndrome, previous hep C, multiple medication use, previous history of anxiety and depression and previous probable suicide attempt, hypothyroidism, significant alcohol use with past alcohol withdrawal, seizure, mainly related to alcohol withdrawal, osteoporosis with multiple compression fractures, previous admission to [facility] with unresponsive state, status post CPR with rib fractures, prolonged intubation with multiple infections in the lung, previous lung nodule highly suggestive of malignancy but patient has been noncompliant with follow-up, previous sternal fracture, avascular necrosis of the hip, now comes in with * Improving. Altered mental status with metabolic encephalopathy, most likely related to polypharmacy with significant hypernatremia, with hypovolemia * Previous history of alcoholism with no active withdrawal at this time. Pt may have had a seizure per ems record. Recent history of significant alcohol use * Probable aspiration pneumonitis. * Resolved Acute kidney injury. * Resolved elevated hemoglobin with erythrocytosis, most likely related to severe hypoxemia and dehydration. * Severe COPD * Lung nodule which is increasing in size highly suggestive of lung malignancy. * Significant malnutrition. * Previous cephalic vein thrombosis with no evidence suggestive of acute venous thromboembolism. * Previous sepsis with Klebsiella and MRSA probably from skin and pneumonia with negative ADRI for any endocarditis. No clinical evidence suggestive of any infection, but patient may have had aspiration * Multiple compression fractures with severe osteoporosis with avascular necrosis of the hip. * Depression, anxiety Poor overall performance status. RECOMMENDATION. When she is taking po dc ivf REduce ativan to 1 mg q 6 hrs Seizure precautions watch her off antibiotics Keep her head of bed elevated. Oxygen to keep sat at 91 percent Panculture if she spikes When necessary low-dose morphine Psychiatric evaluation in am Patient certainly has most likely lung malignancy. This needs to be followed. We will discuss with the patient again about this. Patient has been noncompliant , and was made aware of all risks
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
[2016-10-18 06:00] VITALS: BP 88/40
--- NOTE | 2016-10-18 09:07 | PN- Housestaff ---
Subjective Follow-up For: AMS polypharmacy? Subjective: Pt is seen and examined at bedside. She still appears drowsy, but awake and oriented. She does not offer any acute compliants such as chest pain,sob, palpitation,dizziness, tremors/seizures,fevers/chills, nausea or vomiting. Review of Systems Constitutional: Denies: see HPI. Objective Last 24 Hrs of Vital Signs/I&O .. Physical Exam General Appearance: Oriented X3, Cooperative, APPEARS DORWSY Skin: No Significant Lesion HEENT: Atraumatic, PERRLA, EOMI, Mucous Membr. moist/pink Neck: Supple, No JVD, No thryomegaly Lymphatic: Cervical nl Cardiovascular: Regular Rate, Normal S1, Normal S2 Lungs: Clear to Auscultation, Normal Air Movement Abdomen: Normal Bowel Sounds, Soft, No Tenderness Neurological: Normal Gait, Normal Speech, Normal Tone Extremities: No Clubbing, No Cyanosis, No Edema Current Medications: Current Medications Sig/Khloe Start time Last Medication Dose Route Stop Time Status Admin Acetaminophen 650 MG Q6P PRN 10/15 2100 AC 10/18 IV 0541 Acetaminophen 650 MG Q6P PRN 10/15 1800 AC 10/17 PO 1709 Albuterol Sulfate 3 ML Q 3-4 HRS PRN PRN 10/15 1830 AC INH Albuterol Sulfate 2 PUF Q6P PRN 10/15 1745 AC INH Aspirin 81 MG DAILY 10/16 1000 AC 10/18 PO 1214 Buspirone HCl 15 MG BID 10/15 2200 AC 10/18 PO 2209 Enoxaparin Sodium 40 MG DAILY 10/17 1112 AC 10/18 SC 1218 Folic Acid 1 MG DAILY 10/18 1817 AC 10/18 PO 2209 Levothyroxine Sodium 0.075 MG DAILY AC 10/16 0700 AC 10/18 PO 0528 Lorazepam 1 MG Q6 10/17 1800 AC 10/18 PO 1906 Lorazepam 0 Q1P PRN 10/15 1730 AC IV Melatonin 5 MG AT BEDTIME 10/18 2199 AC 10/18 PO 2208 Melatonin 5 MG AT BEDTIME 10/18 2200 DC PO Morphine Sulfate 1 MG Q6-PRN PRN 10/15 1800 AC 10/18 IV 1636 Multivitamins 1 TAB DAILY 10/18 181 AC 10/18 PO 2208 Patient Medication 1 ED .ST-MED ONE 10/18 1419 DC Teaching ED 10/18 1420 Potassium Chloride 40 MEQ Q13H 10/16 1999 AC 10/18 Dextrose/Water 1,000 ML IV 1215 Quetiapine Fumarate 150 MG AT BEDTIME 10/18 2199 CAN PO Quetiapine Fumarate 200 MG 10/15 DC 10/17 PO 190 Thiamine HCl 100 MG DAILY 10/18 1816 AC 10/18 PO 220 Last 24 Hrs of Lab/Ferny Results Last 24 Hrs of Labs/Mics: Laboratory Tests 10/18/16 0810: Anion Gap 5, Estimated GFR > 60, BUN/Creatinine Ratio 25.0, TSH 11.600 H, CBC w Diff NO MAN DIFF REQ, RBC 3.74 L, MCV 101.2 H, MCH 34.1 H, RDW 14.0, MPV 8.8, Gran % 63.5, Lymphocytes % 25.1, Monocytes % 8.3, Eosinophils % 2.6, Basophils % 0.5, Absolute Granulocytes 6.9 H, Absolute Lymphocytes 2.7, Absolute Monocytes 0.9 H, Absolute Eosinophils 0.3, Absolute Basophils 0.1, PUBS MCHC 33.7 Assessment/Plan Assessment: Patient has chief complaint of AMS. She was found down unresponsive for unknown period of time. Head CT negative for acute infarct or hemorrhage She has several possible etiology for his presentation: Alcohol intoxication, alcohol withdrawal seizures, CVA, suicide attempt, opiate abuse, and cannot rule out underlying infection/SIRS given that she had Tmax 100.4, elevated white count and tachycardia. Luis ox shows evidence of alcohol, cocaine, Tylenol, methadone , or opiates. She had lactic acid of 2.6 subsequently trended down to 1.5. Note that patient has previous admission with similar presentation requiring CPR in the field and intubation with pressors in ICU, subsequently improved and Tuesday and transferred to general floor Altered mental status/unrepsonsiveness. Etiology unclear. Even though reports of being found with an empty vodka bottle and med list suggestive of polypharmacy and possible overdose vs poisoning, pt urine tox is unremarkable with the execption of canabis which is medically prescribed. Unlikley for cannabis especially at this levels to have caused unrepsonviness. * Continue CIWA * Thiamine and dextrose * utox * Seizure precaution * Aspirin 81 mg by mouth daily for stroke prevention. * psych being followed and appreciated. * Psych evaluation recommended. Diet for now Hypernatremia: * Resolved * Will trend BEP Femoral neck fracture: Pt had recent admission on Sep 30 for femoral neck fracture. She left AMA without any intervention. CT at this time reads "Question left femoral head AVN." * Ortho Consult if necessary Hypothyroidism: * Elevated TSH level of 11. Pt reports non compliance, therefore non need to increase dose. Will continue 88 mcg. Lung nodule: * Prior chest CT -Interval increase in spiculated left upper lobe nodule measuring 1 x 1.5 cm. Appearance is concerning for neoplasm. * We will follow pulmonology recommendation Acute renal failure: * resolved. 2/2 hypoperfusion (prerenal). * Will monitor kidney function Full code Problem List: 1. Unresponsive state Pain Ratin Pain Location: none Pain Goal: Remain pain free Pain Plan: apap for mild pain oxycodone for moderate pain Tomorrow's Labs & Rationales: bep: resolving RENE
[2016-10-18 09:33] LABS: ABSOLUTE BASOPHIL COUNT 0.1 /CUMM (0.0-0.2); ABSOLUTE EOSINOPHIL COUNT 0.3 /CUMM (0.0-0.7); ABSOLUTE GRANULOCYTE CT 6.9 /CUMM (1.4-6.5); ABSOLUTE LYMPH COUNT 2.7 /CUMM (1.2-3.4); ABSOLUTE MONOCYTE COUNT 0.9 /CUMM (0.10-0.60); BASOPHIL % 0.5 % (0.0-2.0); EOSINOPHIL % 2.6 % (0-5); GRANULOCYTE % 63.5 % (42.2-75.2); HEMATOCRIT 37.8 % (37-47); MEAN CORPUSCULAR HGB 34.1 PG (27.0-31.0); MEAN CORPUSCULAR HGB CONC 33.7 G/DL (33.0-37.0); MEAN CORPUSCULAR VOLUME 101.2 FL (81.0-99.0); MEAN PLATELET VOLUME 8.8 FL (7.4-10.4); PLATELET COUNT 197 /CUMM (130-400); RED BLOOD CELL CT 3.74 /CUMM (4.20-5.40); WHITE BLOOD CELL COUNT 10.9 /CUMM (4.8-10.8)
--- NOTE | 2016-10-18 13:27 | PN- Pulmonary ---
Subjective HPI/Critical Care Issues: More awake Stable Objective Current Medications: Current Medications Sig/Khloe Start time Last Medication Dose Route Stop Time Status Admin Acetaminophen 650 MG .STK-MED ONE 10/17 1706 DC PO 10/17 1707 Acetaminophen 650 MG Q6P PRN 10/15 2100 AC 10/18 IV 0541 Acetaminophen 650 MG Q6P PRN 10/15 1800 AC 10/17 PO 1709 Albuterol Sulfate 3 ML Q 3-4 HRS PRN PRN 10/15 1830 AC INH Albuterol Sulfate 2 PUF Q6P PRN 10/15 1745 AC INH Aspirin 81 MG DAILY 10/16 1000 AC 10/18 PO 1214 Buspirone HCl 15 MG BID 10/15 220 AC 10/18 PO 1214 Enoxaparin Sodium 40 MG DAILY 10/17 1112 AC 10/18 SC 1218 Levothyroxine Sodium 0.075 MG DAILY AC 10/16 0700 AC 10/18 PO 0528 Lorazepam 1.5 MG Q6 10/17 1800 DC PO Lorazepam 1 MG Q6 10/17 1800 AC 10/18 PO 1214 Lorazepam 0 Q1P PRN 10/15 1730 AC IV Morphine Sulfate 1 MG Q6-PRN PRN 10/15 1800 AC 10/18 IV 0854 Potassium Chloride 40 MEQ Q13H 10/16 1999 AC 10/18 Dextrose/Water 1,000 ML IV 1215 Quetiapine Fumarate 150 MG AT BEDTIME 10/18 2200 AC PO Quetiapine Fumarate 200 MG 10/15 2100 DC 10/17 PO 1904 Vital Signs & I&O Last 24 Hrs of Vitals and I&O: Vital Signs Date Time Temp Pulse Resp B/P Pulse O2 O2 Flow FiO2 Ox Delivery Rate 10/18 599 97.7 88 16 88/40 96 Nasal 2.0L Cannula 10/18 0000 Nasal 2.0L Cannula 10/17 2226 98.7 80 20 100/52 95 Nasal Cannula 10/17 1599 Nasal 2.0L Cannula 10/17 1418 98.2 70 19 90/50 91 Intake & Output 10/18 0800 10/18 0000 Intake Total 995 1000 Output Total 2000 1150 125 Balance -2000 -155 875 Intake, IV 515 400 Intake, Oral 480 600 Output, Stool 1 Output, Urine 1999 1150 125 Patient 97 lb 6.02 oz Weight Impression/Plan Impression/Plan Impression/Plan: Physical exam:awake and oriented RS: Clear lungs bilaterally CVS: RRR, No murmurs Neurological: Pin point pupils, no obvious weakness, responds after exxessive stimulation Abdomen: Normal contour no tenderness Extremities: No C,C or E CT scan of the chest abdomen and pelvis reviewed which shows that she has an increasing spiculated left upper lobe nodule which is now 1.5 cm 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 The left innominate vein. She has significant emphysema with bilateral fibrosis atelectasis with small calcified lymph nodes with significant atherosclerosis. She also has a small renal stone with the mild thickening of the distal ascending colon with Wilder catheter with the new L1 vertebral compression fracture with previous multiple compression fractures of the thoracic spine and avascular necrosis of the femoral head. IMPRESSION This is a 61-year-old lady with history of depression, moderate to severe COPD, chronic alcohol use, chronic pain syndrome, previous hep C, multiple medication use, previous history of anxiety and depression and previous probable suicide attempt, hypothyroidism, significant alcohol use with past alcohol withdrawal, seizure, mainly related to alcohol withdrawal, osteoporosis with multiple compression fractures, previous admission to [facility] with unresponsive state, status post CPR with rib fractures, prolonged intubation with multiple infections in the lung, previous lung nodule highly suggestive of malignancy but patient has been noncompliant with follow-up, previous sternal fracture, avascular necrosis of the hip, now comes in with * Improving. Altered mental status with metabolic encephalopathy, most likely related to polypharmacy with significant hypernatremia, with hypovolemia * Previous history of alcoholism with no active withdrawal at this time. Pt may have had a seizure per ems record. Recent history of significant alcohol use * Probable aspiration pneumonitis. * Resolved Acute kidney injury. * Resolved elevated hemoglobin with erythrocytosis, most likely related to severe hypoxemia and dehydration. * Severe COPD * Lung nodule which is increasing in size highly suggestive of lung malignancy. * Significant malnutrition. * Previous cephalic vein thrombosis with no evidence suggestive of acute venous thromboembolism. * Previous sepsis with Klebsiella and MRSA probably from skin and pneumonia with negative ADRI for any endocarditis. No clinical evidence suggestive of any infection, but patient may have had aspiration * Multiple compression fractures with severe osteoporosis with avascular necrosis of the hip. * Depression, anxiety Poor overall performance status. RECOMMENDATION. watch her off antibiotics Keep her head of bed elevated. Oxygen to keep sat at 91 percent Panc[place] if she spikes Patient certainly has most likely lung malignancy. This needs to be followed. We will discuss with the patient again about this. Patient has been noncompliant , and was made aware of all risks. Please make an appt upon dc to work up of this nodule. Pt is aware and accepts all risks for non compliance
[2016-10-18 14:04] VITALS: BP 100/55
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
--- NOTE | 2016-10-18 16:44 | PN- Att Addend ---
Attending MD Review Statement Attending Statement Attending MD Statement: examined this patient, discuss w/resident/PA/CONVICT GUARD, agreed w/resident/PA/CONVICT GUARD, reviewed EMR data (avail) Attending Assessment/Plan: pt admitted with unresponsive episode at home. mental status improving. likely polypharmacy - her Utox was positive for cannabis but not showing benzo or opiates. unclear etiology for unresponsive episode. d/w pscyh- dced seroquel. will f/u with their recommendations. d/w pt the care plan.
--- NOTE | 2016-10-18 18:12 | PN- Neurology ---
Subjective Subjective: Doing better. More alert and oriented. No further episodes. Review of Systems: no change Objective Vital Signs and I&Os Vital Signs Date Time Temp Pulse Resp B/P Pulse O2 O2 Flow FiO2 Ox Delivery Rate 10/18 1404 98.2 68 18 100/55 96 10/18 0600 97.7 88 16 88/40 96 Nasal 2.0L Cannula 10/18 0000 Nasal 2.0L Cannula 10/17 2226 98.7 80 20 100/52 95 Nasal Cannula Intake & Output 10/18 1600 10/18 0810/18 0000 10/17 1600 10/17 0810/17 0000 Intake Total 995 1000 1320 720 270 Output Total 2801 1150 125 411 226 3598 Balance -2801 -155 875 520 120 -780 Intake, IV 515 400 600 600 150 Intake, Oral 480 600 720 120 120 Output, Stool 1 Output, Urine 2800 1150 125 277 660 3492 Patient 97 lb 6.02 oz Weight Physical Exam: Alert and oriented to place and partially to time. Fluent and non-dysarthric. EOMI, ASHANTI, face symmetric. Strength intact. Current Medications: Current Medications Sig/Khloe Start time Last Medication Dose Route Stop Time Status Admin Acetaminophen 650 MG Q6P PRN 10/15 2100 AC 10/18 IV 0541 Acetaminophen 650 MG Q6P PRN 10/15 1800 AC 10/17 PO 1709 Albuterol Sulfate 3 ML Q 3-4 HRS PRN PRN 10/15 1830 AC INH Albuterol Sulfate 2 PUF Q6P PRN 10/15 1745 AC INH Aspirin 81 MG DAILY 10/16 1000 AC 10/18 PO 1214 Buspirone HCl 15 MG BID 10/15 2200 AC 10/18 PO 1214 Enoxaparin Sodium 40 MG DAILY 10/17 1112 AC 10/18 SC 1218 Levothyroxine Sodium 0.075 MG DAILY AC 10/16 0700 AC 10/18 PO 0528 Lorazepam 1 MG Q6 10/17 1800 AC 10/18 PO 1214 Lorazepam 0 Q1P PRN 10/15 1730 AC IV Morphine Sulfate 1 MG Q6-PRN PRN 10/15 1800 AC 10/18 IV 1636 Patient Medication 1 ED .STK-MED ONE 10/18 1419 DC Teaching ED 10/18 1420 Potassium Chloride 40 MEQ Q13H 10/16 1999 AC 10/18 Dextrose/Water 1,000 ML IV 1215 Quetiapine Fumarate 150 MG AT BEDTIME 10/18 2200 CAN PO Quetiapine Fumarate 200 MG 10/15 2100 DC 10/17 PO 1904 Results Last 24 Hours of Lab Results: Laboratory Tests 10/18 0810 Chemistry Sodium (137 - 145 mmol/L) 139 Potassium (3.5 - 5.1 mmol/L) 4.8 Chloride (98 - 107 mmol/L) 108 H Carbon Dioxide (22 - 30 mmol/L) 26 Anion Gap (5 - 16) 5 BUN (7 - 17 mg/dL) 10 Creatinine (0.5 - 1.0 mg/dL) 0.4 L Estimated GFR (>60 ml/min) > 60 BUN/Creatinine Ratio (7 - 25 %) 25.0 TSH (0.270 - 4.200 uIU/mL) 11.600 H Hematology CBC w Diff NO MAN DIFF REQ WBC (4.8 - 10.8 /CUMM) 10.9 H RBC (4.20 - 5.40 /CUMM) 3.74 L Hgb (12.0 - 16.0 G/DL) 12.8 Hct (37 - 47 %) 37.8 MCV (81.0 - 99.0 FL) 101.2 H MCH (27.0 - 31.0 PG) 34.1 H RDW (11.5 - 14.5 %) 14.0 Plt Count (130 - 400 /CUMM) 197 MPV (7.4 - 10.4 FL) 8.8 Gran % (42.2 - 75.2 %) 63.5 Lymphocytes % (20.5 - 51.1 %) 25.1 Monocytes % (1.7 - 9.3 %) 8.3 Eosinophils % (0 - 5 %) 2.6 Basophils % (0.0 - 2.0 %) 0.5 Absolute Granulocytes (1.4 - 6.5 /CUMM) 6.9 H Absolute Lymphocytes (1.2 - 3.4 /CUMM) 2.7 Absolute Monocytes (0.10 - 0.60 /CUMM) 0.9 H Absolute Eosinophils (0.0 - 0.7 /CUMM) 0.3 Absolute Basophils (0.0 - 0.2 /CUMM) 0.1 PUBS MCHC (33.0 - 37.0 G/DL) 33.7 Assessment/Plan Assessment: 61 year old with likely alcohol withdrawal seizure, chronic back pain syndrome and viral illness now recuperating. Plan: C/w CIWA protocol. No AEDs indicated. PT. Pain management.
[2016-10-18 20:00] VITALS: BP 143/86
--- NOTE | 2016-10-18 23:12 | ELECTROENCEPHALOGRAM REPORT ---
Electroencephalogram Report Electroencephalogram Results Date of service: 10/18/16 Attending MD: JANETTE KAUFFMAN,JIMMY Hahn Associate Publisher: [facility] Number: [id number] Test Utilizes: Test Utilizes a 10-20 system, 21 lead, 18 channel digital recording. Pertinent Hx/Physical/Neuro Findings/Clin Diagnosis: 61 year old with drug abuse, alcohol abuse and recent LOC/AMS. Rule out seizure. Inpatient Medications: Current Medications Sig/Khloe Start time Last Medication Dose Route Stop Time Status Admin Acetaminophen 650 MG Q6P PRN 10/15 2100 AC 10/18 IV 0541 Acetaminophen 650 MG Q6P PRN / 1800 AC 10/17 PO 1709 Albuterol Sulfate 3 ML Q 3-4 HRS PRN PRN 10/15 1830 AC INH Albuterol Sulfate 2 PUF Q6P PRN 10/15 1745 AC INH Aspirin 81 MG DAILY 10/16 1000 AC 10/18 PO 1214 Buspirone HCl 15 MG BID 10/15 2200 AC 10/18 PO 2209 Enoxaparin Sodium 40 MG DAILY 10/17 1112 AC 10/18 SC 1218 Folic Acid 1 MG DAILY 10/18 1817 AC 10/18 PO 2209 Levothyroxine Sodium 0.075 MG DAILY AC 10/16 0700 AC 10/18 PO 0528 Lorazepam 1 MG Q6 10/17 1800 AC 10/18 PO 1906 Lorazepam 0 Q1P PRN 10/15 1730 AC IV Melatonin 5 MG AT BEDTIME 10/18 2200 AC 10/18 PO 2208 Melatonin 5 MG AT BEDTIME 10/18 2200 DC PO Morphine Sulfate 1 MG Q6-PRN PRN 10/15 1800 AC 10/18 IV 2229 Multivitamins 1 TAB DAILY 10/18 1817 AC 10/18 PO 2208 Patient Medication 1 ED .STK-MED ONE 10/18 1419 DC Teaching ED 10/18 1420 Potassium Chloride 40 MEQ Q13H 10/16 1999 AC 10/18 Dextrose/Water 1,000 ML IV 1215 Quetiapine Fumarate 150 MG AT BEDTIME 10/18 2200 CAN PO Quetiapine Fumarate 200 MG 10/15 2100 DC 10/17 PO 1904 Thiamine HCl 100 MG DAILY 10/18 181 AC 10/18 PO 2209 Interpretation: The recording demonstrates the normal frequency gradient. There are no paroxysmal features, and no suspicious sharps or spikes. There is mild background slowing with the posterior dominant rhythm being lower than expected for age at 7 hertz bilaterally. Impression: Mildly abnormal EEG due to mild background slowing suggestive of mild cerebral dysfunction without focal features. No suggestion of seizures.
[2016-10-18 23:18] VITALS: BP 124/80
[2016-10-19 04:00] VITALS: BP 130/75
[2016-10-19 06:29] VITALS: BP 140/86
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
--- NOTE | 2016-10-19 09:30 | NUR ---
Physical Therapy: Patient refused PT despite continued attempts to educate the patient on the importance of participating. MST in room was also unable to get the patient to stand so she could change the bed sheets. Patient is aggitated and wants her meds but was not due for them. Communicated refusal with NSG.
--- NOTE | 2016-10-19 12:15 | PN- Att Addend ---
Attending MD Review Statement Attending Statement Attending MD Statement: examined this patient, discuss w/resident/PA/NYLON MACHINE OPERATOR, agreed w/resident/PA/NYLON MACHINE OPERATOR, reviewed EMR data (avail) Attending Assessment/Plan: pt admitted with unresponsive episode at home and has had similar episode previously. mental status improving. likely polypharmacy - her Utox was positive for cannabis but not showing benzo or opiates. unclear etiology for unresponsive episode. d/w pscyh- dced seroquel yesterday, pt is more alert today but upset about her seroquel being stopped. Plan is to dc [facility].
--- NOTE | 2016-10-19 12:39 | PN- Pulmonary ---
Subjective HPI/Critical Care Issues: Little better Afebrile Objective Current Medications: Current Medications Sig/Khloe Start time Last Medication Dose Route Stop Time Status Admin Acetaminophen 650 MG Q6P PRN 10/15 2100 AC 10/18 IV 0541 Acetaminophen 650 MG Q6P PRN 10/15 1800 AC 10/17 PO 1709 Albuterol Sulfate 3 ML Q 3-4 HRS PRN PRN 10/15 1830 AC INH Albuterol Sulfate 2 PUF Q6P PRN 10/15 1745 AC INH Aspirin 81 MG DAILY 10/16 1000 AC 10/19 PO 1146 Buspirone HCl 15 MG BID 10/15 2200 AC 10/19 PO 1147 Enoxaparin Sodium 40 MG DAILY 10/17 1112 AC 10/19 SC 1151 Folic Acid 1 MG DAILY 10/18 181 AC 10/19 PO 1147 Levothyroxine Sodium 0.075 MG DAILY AC 10/16 0700 AC 10/19 PO 0602 Lorazepam 1 MG Q6 10/17 1800 AC 10/19 PO 1231 Lorazepam 0 Q1P PRN 10/15 1730 AC IV Melatonin 5 MG AT BEDTIME 10/18 2199 AC 10/18 PO 2208 Melatonin 5 MG AT BEDTIME 10/18 220 DC PO Morphine Sulfate 1 MG Q6-PRN PRN 10/15 1800 AC 10/19 IV 1140 Multivitamins 1 TAB DAILY 10/18 181 AC 10/19 PO 1147 Patient Medication 1 ED .STK-MED ONE 10/18 1419 DC Teaching ED 10/18 1420 Potassium Chloride 40 MEQ Q13H 10/16 1999 AC 10/19 Dextrose/Water 1,000 ML IV 1227 Quetiapine Fumarate 150 MG AT BEDTIME 10/180 CAN PO Quetiapine Fumarate 200 MG 10/15 2100 DC 10/17 PO 1904 Thiamine HCl 100 MG DAILY 10/18 181 AC 10/19 PO 1147 Vital Signs & I&O Last 24 Hrs of Vitals and I&O: Vital Signs Date Time Temp Pulse Resp B/P Pulse O2 O2 Flow FiO2 Ox Delivery Rate 10/19 628 98.1 89 20 140/86 93 Nasal 2.0L Cannula 10/19 399 98.0 76 18 130/75 10/19 Nasal 2.0L Cannula 10/18 2317 98.5 93 18 124/80 93 Room Air 10/18 1999 98.0 78 20 143/86 10/18 1404 98.2 68 18 100/55 96 Intake & Output 10/19 1600 10/19 0800 10/19 0000 Intake Total 720 420 Output Total 702 1700 650 Balance -702 -980 -230 Intake, IV 600 300 Intake, Oral 120 120 Number 1 Bowel Movements Output, Stool 2 Output, Urine 700 1700 650 Impression/Plan Impression/Plan Impression/Plan: Physical exam:awake and oriented RS: Clear lungs bilaterally CVS: RRR, No murmurs Neurological: Pin point pupils, no obvious weakness, responds after exxessive stimulation Abdomen: Normal contour no tenderness Extremities: No C,C or E CT scan of the chest abdomen and pelvis reviewed which shows that she has an increasing spiculated left upper lobe nodule which is now 1.5 cm 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 The left innominate vein. She has significant emphysema with bilateral fibrosis atelectasis with small calcified lymph nodes with significant atherosclerosis. She also has a small renal stone with the mild thickening of the distal ascending colon with Wilder catheter with the new L1 vertebral compression fracture with previous multiple compression fractures of the thoracic spine and avascular necrosis of the femoral head. IMPRESSION This is a 61-year-old lady with history of depression, moderate to severe COPD, chronic alcohol use, chronic pain syndrome, previous hep C, multiple medication use, previous history of anxiety and depression and previous probable suicide attempt, hypothyroidism, significant alcohol use with past alcohol withdrawal, seizure, mainly related to alcohol withdrawal, osteoporosis with multiple compression fractures, previous admission [facility] with unresponsive state, status post CPR with rib fractures, prolonged intubation with multiple infections in the lung, previous lung nodule highly suggestive of malignancy but patient has been noncompliant with follow-up, previous sternal fracture, avascular necrosis of the hip, now comes in with * Improving. Altered mental status with metabolic encephalopathy, most likely related to polypharmacy with significant hypernatremia, with hypovolemia * Previous history of alcoholism with no active withdrawal at this time. Pt may have had a seizure per ems record. Recent history of significant alcohol use * Probable aspiration pneumonitis now resolved * Resolved Acute kidney injury. * Resolved elevated hemoglobin with erythrocytosis, most likely related to severe hypoxemia and dehydration. * Severe COPD * Lung nodule which is increasing in size highly suggestive of lung malignancy. * Significant malnutrition. * Previous cephalic vein thrombosis with no evidence suggestive of acute venous thromboembolism. * Previous sepsis with Klebsiella and MRSA probably from skin and pneumonia with negative ADRI for any endocarditis. No clinical evidence suggestive of any infection, but patient may have had aspiration * Multiple compression fractures with severe osteoporosis with avascular necrosis of the hip. * Depression, anxiety Poor overall performance status. RECOMMENDATION. watch her off antibiotics Keep her head of bed elevated. Oxygen to keep sat at 91 percent WIll sign off Patient certainly has most likely lung malignancy. This needs to be followed. We will discuss with the patient again about this. Patient has been noncompliant , and was made aware of all risks. Please make an appt upon dc to work up of this nodule. Pt is aware and accepts all risks for non compliance. Have her call us for follow up
--- NOTE | 2016-10-19 13:43 | Discharge Summary ---
Visit Information Visit Dates Admission Date: 10/15/16 Discharge Date: 10/24/2016 Hospital Course Course Attending Physician: JANETTE KAUFFMAN,JIMMY Hahn Primary Care Physician: INGRID KAUFFMAN,KARON [facility] Course: This is a 61-year-old female with past medical history of COPD, hepatitis C, hypothyroidism, chronic back pain seeing pain specialist, hx of cocaine abuse, alcohol abuse with withdrawl seizures, with CC of AMS. She was found unresponsive at home on couch. Per EMS house was in shambles. In the field she recieved several doses of Narcan with no change in mental status. During admission pt was very lethargic and obtunded. History limited secondary to patient's mental status. She was able to deny any pain, and SOB. She was able to move all extremities after much encouragement. No other information could be obtained. Note that in January 2016, patient had similar admission after being found with agonal respiration in her own vomitus. At that time she required CPR in field, and was intubated with a central line and on pressors. She was in hospital from 01/18/05 and was transferred to [facility] inpatient psych unit. Of note, patient had recent admission in September 30 for left femoral head fracture, however at that time she was not willing to be admitted and left AMA. Vital Signs Date Time Temp Pulse Resp B/P Pulse O2 O2 Flow FiO2 Ox Delivery Rate 10/15 1845 Nasal 2.0L Cannula / 1800 98.7 105 30 112/82 02/ 1800 98 Nasal 2.0L Cannula / 1800 98.7 105 20 112/82 98 Nasal 2.0L Cannula / 1724 93 Nasal 2.0L Cannula / 1718 100.4 109 16 151/86 93 Nasal 1.0L Cannula 02/03 1611 101.0 101 16 154/82 95 Nasal 1.0L Cannula 02/03 1449 100.5 98 20 155/84 98 Nasal 2.0L Cannula 02/03 1404 99.9 108 18 165/79 96 Nasal 2.0L Cannula 02/03 1258 99.3 102 20 155/73 98 Nasal 2.0L Cannula 02/03 1220 100.0 98 20 150/86 100 Nasal 2.0L Cannula 02/03 1149 99.9 106 22 153/70 98 Nasal 2.0L Cannula 10/15 1125 100.3 110 25 132/87 99 Nasal 2.0L Cannula 10/15 1100 100.0 108 26 141/87 98 Nasal 2.0L Cannula 10/15 1051 96 Nasal 2.0L Cannula 10/15 1045 103 22 169/99 96 Nasal 2.0L Cannula 10/15 1015 99.3 106 20 120/70 89 Room Air Room Air Physical Exam General Appearance Mild Distress, Pt obtunded and unable to respond meaningfully. She did know she was in a hospital and denied that she had any pain. Skin No Significant Lesion HEENT Atraumatic, pin point pupils, dry mucous membranes Neck Supple Cardiovascular tachycardic Lungs decreased air movement, but clear to auscultaiton Abdomen Soft, No Tenderness Neurological AO X3; diffiuclt to rouse, responsive to sternal rub Extremities No Clubbing, No Cyanosis, No Edema Last 24 Hrs of Labs/Ferny: Laboratory Tests 10/15/161: Sodium Pending, Potassium Pending, Chloride Pending, Carbon Dioxide Pending, Anion Gap Pending, BUN Pending, Creatinine Pending, Glucose Pending, Calcium Pending, Phosphorus Pending, Magnesium Pending, Total Bilirubin Pending, AST Pending, ALT Pending, Albumin Pending 10/15/16 1830: Ammonia 12 10/15/16 1712: Anion Gap 14, Estimated GFR > 60, BUN/Creatinine Ratio 60.0 H, Magnesium 2.7 H , Creatine Kinase 586 H, Troponin I 0.12 *H, CBC w Diff NO MAN DIFF REQ, RBC 4.75, MCV 100.1 H, MCH 33.9 H, RDW 14.0, MPV 8.3, Gran % 74.8, Lymphocytes % 11.8 L, Monocytes % 13.2 H, Eosinophils % 0, Basophils % 0.2, Absolute Granulocytes 11.9 H, Absolute Lymphocytes 1.9, Absolute Monocytes 2.1 H, Absolute Eosinophils 0, Absolute Basophils 0, PUBS MCHC 33.9 10/15/16 1339: Lactic Acid 1.5 10/15/16 1125: Anion Gap 21 H, Estimated GFR 45 L, BUN/Creatinine Ratio 61.7 H, Glucose 125 H, Lactic Acid 2.6 H, Calcium 9.4, Total Bilirubin 1.6 H, AST 31, ALT 26, Alkaline Phosphatase 108, Creatine Kinase 565 H, Troponin I 0.09, Total Protein 8.1, Albumin 4.9, Globulin 3.2, Albumin/Globulin Ratio 1.5, APTT Cancelled, Salicylates < 1.0, Acetaminophen < 10.0 L, Serum Alcohol < 10.0 10/15/16 1055: pH 7.43, pCO2 35, pO2 86, HCO3 22, ABG O2 Sat (Measured) 95.0 L, P-50 (Temp Corrected) N, Carboxyhemoglobin 1.3 L, O2 Concentration % 2L, Temperature 99.3, O2 Delivery Method NC, Phlebotomy Draw Site RIGHT BRACHIAL 10/15/16 1040: Urine Opiates Screen < 100.00, Methadone Screen < 40, Barbiturate Screen < 60, Ur Phencyclidine Scrn < 6.00, Amphetamines Screen < 100, U Benzodiazepines Scrn < 85, Urine Cocaine Screen < 50, Urine Cannabis Screen 21.90, Urine Color ONEIL, Urine Clarity CLEAR, Urine pH 6.0, Ur Specific [place] 1.025, Urine Protein 100 H, Urine Ketones 40 H, Urine Nitrite NEG, Urine Bilirubin POS@ICTO H, Urine Urobilinogen 1.0, Ur Leukocyte Esterase NEG, Ur Microscopic SEDIMENT EXAMINED, Urine RBC 1-3, Urine WBC RARE, Ur Epithelial Cells MANY H, Hyaline Casts MANY H, Urine Mucus MOD H, Urine Hemoglobin TRACE-LYSED, Urine Glucose NEG 10/15/16 1038: CBC w Diff MAN DIFF ORDERED, RBC 5.68 H, MCV 99.0, MCH 33.5 H, RDW 13.9, MPV 8.7, Gran % 72.5, Lymphocytes % 12.0 L, Monocytes % 15.2 H, Eosinophils % 0, Basophils % 0.3, Absolute Granulocytes 13.3 H, Absolute Lymphocytes 2.2, Absolute Monocytes 2.8 H, Absolute Eosinophils 0, Absolute Basophils 0, Platelet Estimate ADEQUATE, Normocytic RBCs VERIFIED, Normochromic RBCs VERIFIED , PUBS MCHC 33.9 Microbiology 10/15 1814 UPPER RESP: Surveillance Culture - RECD 10/15 1814 GI: Surveillance Culture - RECD 10/15 1356 BLOOD: Blood Culture - RECD 10/15 1125 BLOOD: Blood Culture - RECD 10/15 1040 URINE ROUT: Urine Culture - RECD IMAGING SHOWS: CHEST: 1. Interval increase in spiculated left upper lobe nodule measuring 1 x 1.5 cm. Appearance is concerning for neoplasm. 2. 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 3. Emphysema. Stable areas of scarring, fibrosis and atelectasis. Stable small calcified nodules. 4. Atherosclerotic disease and coronary artery calcification. ABDOMEN AND PELVIS: 1. Small right lower pole renal stone. 2. Increased attenuation seen dependently in the gallbladder. This could be better evaluated with ultrasound if clinically indicated. 3. Apparent area of wall thickening in the distal ascending colon. It is uncertain whether this is a true finding or is artifactual related to peristalsis or contraction. 4. Wilder catheter in the bladder. The bladder is not completely empty. New L1 vertebral body compression fracture from January 2016. Stable T8 and T9 vertebral body compression fractures. Question left femoral head AVN. patient was initially admitted to ICU and after 2 days she was transferred to [facility] floor. She was treated for these medical conditions: Altered mental status/hx of polysubstance abuse/leukocytosis Head CT negative for acute infarct or hemorrhage. Utox was negative. She was put on IV hydration and NPO.Neurology Suggested EEG, which ruled out seizures. Psychiatry also recommended putting the patient on folate and multivitamins.aspirin was added for stroke prevention. Subsequently patient mental status improved and she passed a swallow evaluation, she was transferred to general medicine floor. Leukocytosis also improved during the hospitalization(Unasyn was given only one day). Seroquel and alprazolam was stopped during the hospitalization and patient was put on Ativan taper on discharge. Hypernatremia/hypokalema/RENE patient came in with na 154. She was initially put on DW5 and subsequently potassium chloride in D5W. RENE resolved during the hospitalization Fluids were stopped upon discharge. Elevated Troponin: Patient's first troponin came in at 0.09. Next troponin at 0.12. No acute change in EKG was seen. She was asymptomatic during the hospitalization Femoral neck fracture: Pt had recent admission on Sep 30 for femoral neck fracture. She left AMA without any intervention. CT at this time reads "Question left femoral head AVN." She needs to follow-up with orthopedic service in an outpatient setting Hypothyroidism: TSH was elevated around 11. Patient is noncompliant with the medication we resumed the medication in the hospital Lung nodule/COPD/hx of smoking Prior chest CT -Interval increase in spiculated left upper lobe nodule measuring 1 x 1.5 cm. Appearance is concerning for neoplasm.patient should follow up with in outpatient setting. We continued the patient's inhalers during hospitalization and put the patient on nicotine patch for smoking cessation. BuSpar was continued. Allergies: Coded Allergies: latex (Intermediate, ANAPHYLAXIS 10/15/16) codeine (Severe, N/V 10/15/16) Pertinent Lab Results: PATIENT: MAXIMILIAN DODD PRESENT AGE: 61 PATIENT ACCOUNT NO: [id number] : 53 LOCATION: [facility] ORDERING PHYSICIAN: DARÍO COREA SERVICE DATE: 10/15/16 EXAM TYPE: CAT - CT ABD & PELVIS W/O IV CONTRAS; CT CHEST WO IV CONTRAST EXAMINATION: CT CHEST WITHOUT CONTRAST CT ABDOMEN AND PELVIS WITHOUT CONTRAST CLINICAL INFORMATION: Patient unresponsive. COMPARISON: Previous chest x-rays, most recent August 2016. Chest, abdomen and pelvis CT January 2016, abdominal ultrasound January 2016 and CTA of the chest January 2016. TECHNIQUE: Axial images through the chest, abdomen and pelvis without oral or IV contrast. DLP: 328 mGy-cm FINDINGS: CHEST: There is evidence of emphysema. There is linear scarring or fibrosis and some traction bronchiectasis seen in the right upper lung adjacent to the major fissure. There is a spiculated nodule in the left upper lobe. This measures 1 x 1.5 cm (axial image 34, series 3). This has increased in size from the January 2016 exam. There is linear scarring or chronic subsegmental atelectasis seen in the posterior basal segment of the left lower lobe. This has a 7 x 10 mm nodular component (axial image 41, series 3) that is stable. There is minimal linear scarring or subsegmental atelectasis seen in the posterior and lateral basal segments of the right lower lobe. There is a tiny 3 mm nodule in the superior segment of the right lower lobe that may be calcified (axial image 123, series 5). There is a 3 x 5 mm calcified left lower lobe nodule (axial image 325, series 4). These nodules are stable. The previously identified right upper lobe airspace disease, bilateral pleural effusions and lower lobe compressive atelectasis has resolved. There is evidence of atherosclerotic disease and coronary artery calcification. The heart does not appear enlarged. The thoracic aorta is normal in caliber. There is question of abnormal or anomalous venous drainage of the left upper lobe to the left innominate vein. There is no pericardial effusion. There is no pleural effusion, pleural thickening or pneumothorax. No chest wall mass or axillary adenopathy is seen. ABDOMEN AND PELVIS: The liver, spleen, pancreas, and adrenal glands are normal. There is layering increased attenuation in the gallbladder. No definite gallstones are seen by CT. This could be better evaluated with ultrasound if clinically indicated. There is a small 2 mm right lower pole renal stone. The kidneys are otherwise normal. There is a Wilder catheter in the bladder. The bladder contains some urine and air. No pelvic mass is seen. There is apparent wall thickening of the distal right colon (axial image 78, series 2; coronal reconstructed image 36). It is uncertain whether this is a true finding or is artifactual related to peristalsis or contraction. Small and large bowel is unremarkable. The appendix is not identified. No ascites, adenopathy or free air is seen. The abdominal aorta is normal in caliber. There is evidence of atherosclerotic disease. No hernia is seen. Review at bone windows demonstrates subchondral sclerosis and irregular contour at the left femoral head questionable for AVN. There are degenerative changes to the spine and mild thoracolumbar scoliosis. There are T8, T9 and L1 vertebral body compression fractures. The T8 and T9 compression fractures are unchanged from January 2016. The L1 vertebral body compression fracture is new in the interval. The previously questioned sternal fracture is not appreciated. IMPRESSION: CHEST: 1. Interval increase in spiculated left upper lobe nodule measuring 1 x 1.5 cm. Appearance is concerning for neoplasm. 2. 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 3. Emphysema. Stable areas of scarring, fibrosis and atelectasis. Stable small calcified nodules. 4. Atherosclerotic disease and coronary artery calcification. ABDOMEN AND PELVIS: 1. Small right lower pole renal stone. 2. Increased attenuation seen dependently in the gallbladder. This could be better evaluated with ultrasound if clinically indicated. 3. Apparent area of wall thickening in the distal ascending colon. It is uncertain whether this is a true finding or is artifactual related to peristalsis or contraction. 4. Wilder catheter in the bladder. The bladder is not completely empty. New L1 vertebral body compression fracture from January 2016. Stable T8 and T9 vertebral body compression fractures. Question left femoral head AVN. DICTATED BY: BEN SPIVEY MD DATE/TIME DICTATED:10/15/161108 PHYSICIAN'S AIDE:RIMA DATE/TIME TRANSCRIBED:10/15/161108 CONFIDENTIAL, DO NOT COPY WITHOUT APPROPRIATE AUTHORIZATION. <Electronically signed in Other Vendor System> SIGNED BY: BEN SPIVEY MD [id number] PATIENT: MAXIMILIAN DODD PRESENT AGE: 61 PATIENT ACCOUNT NO: [id number] : 53 LOCATION: [facility] ORDERING PHYSICIAN: DARÍO COREA SERVICE DATE: 10/15/16 EXAM TYPE: CAT - CT CERV SPINE WO IV CONTRAST; CT HEAD WO IV CONTRAST EXAMINATION: CT HEAD AND CERVICAL SPINE. CLINICAL INFORMATION: Unresponsive. COMPARISON: CT head 01/23/2016. TECHNIQUE: Tax Commissioner images were obtained. A CT acquisition of the head and cervical spine was performed without intravenous administration of contrast. Data was reformatted into multiplanar images at the acquisition workstation. DLP: 868.99 mGy-cm. FINDINGS: Head: There is chronic gliosis and encephalomalacia involving the right anterior temporal lobe. 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 There is no evidence of acute intercranial hemorrhage or abnormal extra-axial collection. Grossly no evidence of acute territorial infarct. The calvarium and skull base are intact. There is no mastoid or middle ear effusion. Visualized paranasal sinuses are well-aerated with the exception of a mucous retention cyst within the left maxillary sinus and the right nasal cavity. Globes and orbits are symmetric. Cervical spine: There is anatomic alignment and position of the vertebral bodies and posterior elements of the cervical spine in the sagittal dimension. Vertebral body heights are preserved. There is no evidence of acute fracture and no abnormal prevertebral soft tissue swelling. There is mild degenerative arthrosis of the atlantodental joint. There is a right central protrusion at C6-C7 that causes indentation of the ventral thecal sac and subtle abutment on the ventral surface of the cervical cord. Otherwise there is no evidence of canal compromise. Asymmetric uncovertebral joint hypertrophy and facet osteophyte spurring causes mild to moderate left neuroforaminal encroachment at C4-C5 and C5-C6. Emphysema is visualized within the apices of both lungs, greater on the right side. Calcified atheromatous plaque is visualized at both carotid bifurcations. Multiple metallic foreign bodies are visualized within the right submandibular region. IMPRESSION: Head: Stable examination. No evidence of acute territorial infarct or hemorrhage. 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 Cervical spine: No evidence of acute cervical spinal fracture. There is a right central protrusion at C6-C7 causing indentation of the ventral thecal sac and subtle abutment on the ventral surface of the cervical cord. Otherwise there is no evidence of canal compromise. DICTATED BY: GINO CARLOS MD DATE/TIME DICTATED:10/15/161055 PHYSICIAN'S AIDE:RIMA DATE/TIME TRANSCRIBED:10/15/161055 CONFIDENTIAL, DO NOT COPY WITHOUT APPROPRIATE AUTHORIZATION. <Electronically signed in Other Vendor System> SIGNED BY: GINO CARLOS MD 10/15 1106 PATIENT: MAXIMILIAN DODD PRESENT AGE: 61 PATIENT ACCOUNT NO: [id number] : 53 LOCATION: [facility] ORDERING PHYSICIAN: DARÍO COREA SERVICE DATE: 10/15/16 EXAM TYPE: CAT - CT ABD & PELVIS W/O IV CONTRAS; CT CHEST WO IV CONTRAST EXAMINATION: CT CHEST WITHOUT CONTRAST CT ABDOMEN AND PELVIS WITHOUT CONTRAST CLINICAL INFORMATION: Patient unresponsive. COMPARISON: Previous chest x-rays, most recent August 2016. Chest, abdomen and pelvis CT January 2016, abdominal ultrasound January 2016 and CTA of the chest January 2016. TECHNIQUE: Axial images through the chest, abdomen and pelvis without oral or IV contrast. DLP: 328 mGy-cm FINDINGS: CHEST: There is evidence of emphysema. There is linear scarring or fibrosis and some traction bronchiectasis seen in the right upper lung adjacent to the major fissure. There is a spiculated nodule in the left upper lobe. This measures 1 x 1.5 cm (axial image 34, series 3). This has increased in size from the January 2016 exam. There is linear scarring or chronic subsegmental atelectasis seen in the posterior basal segment of the left lower lobe. This has a 7 x 10 mm nodular component (axial image 41, series 3) that is stable. There is minimal linear scarring or subsegmental atelectasis seen in the posterior and lateral basal segments of the right lower lobe. There is a tiny 3 mm nodule in the superior segment of the right lower lobe that may be calcified (axial image 123, series 5). There is a 3 x 5 mm calcified left lower lobe nodule (axial image 325, series 4). These nodules are stable. The previously identified right upper lobe airspace disease, bilateral pleural effusions and lower lobe compressive atelectasis has resolved. There is evidence of atherosclerotic disease and coronary artery calcification. The heart does not appear enlarged. The thoracic aorta is normal in caliber. There is question of abnormal or anomalous venous drainage of the left upper lobe to the left innominate vein. There is no pericardial effusion. There is no pleural effusion, pleural thickening or pneumothorax. No chest wall mass or axillary adenopathy is seen. ABDOMEN AND PELVIS: The liver, spleen, pancreas, and adrenal glands are normal. There is layering increased attenuation in the gallbladder. No definite gallstones are seen by CT. This could be better evaluated with ultrasound if clinically indicated. There is a small 2 mm right lower pole renal stone. The kidneys are otherwise normal. There is a Wilder catheter in the bladder. The bladder contains some urine and air. No pelvic mass is seen. There is apparent wall thickening of the distal right colon (axial image 78, series 2; coronal reconstructed image 36). It is uncertain whether this is a true finding or is artifactual related to peristalsis or contraction. Small and large bowel is unremarkable. The appendix is not identified. No ascites, adenopathy or free air is seen. The abdominal aorta is normal in caliber. There is evidence of atherosclerotic disease. No hernia is seen. Review at bone windows demonstrates subchondral sclerosis and irregular contour at the left femoral head questionable for AVN. There are degenerative changes to the spine and mild thoracolumbar scoliosis. There are T8, T9 and L1 vertebral body compression fractures. The T8 and T9 compression fractures are unchanged from January 2016. The L1 vertebral body compression fracture is new in the interval. The previously questioned sternal fracture is not appreciated. IMPRESSION: CHEST: 1. Interval increase in spiculated left upper lobe nodule measuring 1 x 1.5 cm. Appearance is concerning for neoplasm. 2. 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 3. Emphysema. Stable areas of scarring, fibrosis and atelectasis. Stable small calcified nodules. 4. Atherosclerotic disease and coronary artery calcification. ABDOMEN AND PELVIS: 1. Small right lower pole renal stone. 2. Increased attenuation seen dependently in the gallbladder. This could be better evaluated with ultrasound if clinically indicated. 3. Apparent area of wall thickening in the distal ascending colon. It is uncertain whether this is a true finding or is artifactual related to peristalsis or contraction. 4. Wilder catheter in the bladder. The bladder is not completely empty. New L1 vertebral body compression fracture from January 2016. Stable T8 and T9 vertebral body compression fractures. Question left femoral head AVN. DICTATED BY: BEN SPIVEY MD DATE/TIME DICTATED:10/15/161108 PHYSICIAN'S AIDE:RIMA DATE/TIME TRANSCRIBED:10/15/161108 CONFIDENTIAL, DO NOT COPY WITHOUT APPROPRIATE AUTHORIZATION. <Electronically signed in Other Vendor System> SIGNED BY: BEN SPIVEY MD 1224 PATIENT: MAXIMILIAN DODD PRESENT AGE: 61 PATIENT ACCOUNT NO: [id number] : 53 LOCATION: [facility] ORDERING PHYSICIAN: DARÍO COREA SERVICE DATE: 10/15/16 EXAM TYPE: CAT - CT CERV SPINE WO IV CONTRAST; CT HEAD WO IV CONTRAST EXAMINATION: CT HEAD AND CERVICAL SPINE. CLINICAL INFORMATION: Unresponsive. COMPARISON: CT head 01/23/2016. TECHNIQUE: Tax Commissioner images were obtained. A CT acquisition of the head and cervical spine was performed without intravenous administration of contrast. Data was reformatted into multiplanar images at the acquisition workstation. DLP: 868.99 mGy-cm. FINDINGS: Head: There is chronic gliosis and encephalomalacia involving the right anterior temporal lobe. 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 There is no evidence of acute intercranial hemorrhage or abnormal extra-axial collection. Grossly no evidence of acute territorial infarct. The calvarium and skull base are intact. There is no mastoid or middle ear effusion. Visualized paranasal sinuses are well-aerated with the exception of a mucous retention cyst within the left maxillary sinus and the right nasal cavity. Globes and orbits are symmetric. Cervical spine: There is anatomic alignment and position of the vertebral bodies and posterior elements of the cervical spine in the sagittal dimension. Vertebral body heights are preserved. There is no evidence of acute fracture and no abnormal prevertebral soft tissue swelling. There is mild degenerative arthrosis of the atlantodental joint. There is a right central protrusion at C6-C7 that causes indentation of the ventral thecal sac and subtle abutment on the ventral surface of the cervical cord. Otherwise there is no evidence of canal compromise. Asymmetric uncovertebral joint hypertrophy and facet osteophyte spurring causes mild to moderate left neuroforaminal encroachment at C4-C5 and C5-C6. Emphysema is visualized within the apices of both lungs, greater on the right side. Calcified atheromatous plaque is visualized at both carotid bifurcations. Multiple metallic foreign bodies are visualized within the right submandibular region. IMPRESSION: Head: Stable examination. No evidence of acute territorial infarct or hemorrhage. 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 Cervical spine: No evidence of acute cervical spinal fracture. There is a right central protrusion at C6-C7 causing indentation of the ventral thecal sac and subtle abutment on the ventral surface of the cervical cord. Otherwise there is no evidence of canal compromise. DICTATED BY: GINO CARLOS MD DATE/TIME DICTATED:10/15/161055 PHYSICIAN'S AIDE:RIMA DATE/TIME TRANSCRIBED:10/15/161055 CONFIDENTIAL, DO NOT COPY WITHOUT APPROPRIATE AUTHORIZATION. <Electronically signed in Other Vendor System> SIGNED BY: GINO CARLOS MD 10/15 1106 Patient Name: MAXIMILIAN DODD Location: [facility] Date of : [birth year] Unit Number: [id number] Sex: F Age: 61 Electroencephalogram Report Electroencephalogram Results Date of service: 10/18/16 Attending MD: JIMMY SAVAGE MD Catering Director: Darius EEG Number: [id number] Test Utilizes: Test Utilizes a 10-20 system, 21 lead, 18 channel digital recording. Pertinent Hx/Physical/Neuro Findings/Clin Diagnosis: 61 year old with drug abuse, alcohol abuse and recent LOC/AMS. Rule out seizure. Inpatient Medications: Current Medications Sig/Khloe Start time Last Medication Dose Route Stop Time Status Admin Acetaminophen 650 MG Q6P PRN 10/15 2100 AC 10/18 IV 0541 Acetaminophen 650 MG Q6P PRN 10/15 1800 AC 10/17 PO 1709 Albuterol Sulfate 3 ML Q 3-4 HRS PRN PRN 10/15 1830 AC INH Albuterol Sulfate 2 PUF Q6P PRN 10/15 1745 AC INH Aspirin 81 MG DAILY 10/16 1000 AC 10/18 PO 1214 Buspirone HCl 15 MG BID 10/15 2200 AC 10/18 PO 2209 Enoxaparin Sodium 40 MG DAILY 10/17 1112 AC 10/18 SC 1218 Folic Acid 1 MG DAILY 10/18 181 AC 10/18 PO 2209 Levothyroxine Sodium 0.075 MG DAILY AC 10/16 0700 AC 10/18 PO 0528 Lorazepam 1 MG Q6 10/17 1800 AC 10/18 PO 1906 Lorazepam 0 Q1P PRN 10/15 1730 AC IV Melatonin 5 MG AT BEDTIME 10/18 2200 AC 10/18 PO 2208 Melatonin 5 MG AT BEDTIME 10/18 2200 DC PO Morphine Sulfate 1 MG Q6-PRN PRN 10/15 1800 AC 10/18 IV 2229 Multivitamins 1 TAB DAILY 10/18 181 AC 10/18 PO 2208 Patient Medication 1 ED .STK-MED ONE 10/18 1419 DC Teaching ED 10/18 1420 Potassium Chloride 40 MEQ Q13H 10/16 1999 AC 10/18 Dextrose/Water 1,000 ML IV 1215 Quetiapine Fumarate 150 MG AT BEDTIME 10/18 2200 CAN PO Quetiapine Fumarate 200 MG 10/15 2100 DC 10/17 PO 1904 Thiamine HCl 100 MG DAILY 10/18 181 AC 10/18 PO 220 Interpretation: The recording demonstrates the normal frequency gradient. There are no paroxysmal features, and no suspicious sharps or spikes. There is mild background slowing with the posterior dominant rhythm being lower than expected for age at 7 hertz bilaterally. Impression: Mildly abnormal EEG due to mild background slowing suggestive of mild cerebral dysfunction without focal features. No suggestion of seizures. DICTATED BY: MARY ELLEN DEAL MD DATE/TIME DICTATED:10/18/162306 PHYSICIAN'S AIDE:MANUEL DATE/TIME TRANSCRIBED:10/18/162306 REPORT NUMBER:[id number] CONFIDENTIAL, DO NOT COPY WITHOUT APPROPRIATE AUTHORIZATION. <Electronically signed by MARY ELLEN DEAL MD> 10/18/162 Disposition Summary Disposition Principal Diagnosis: AMS due to polypharmacy alcohol abuse Lung nodules Additional Diagnosis: Thyroidism COPD Discharge Disposition: home or self care Discharge Instructions General Discharge Information Code Status: Full Code Patient's Diet: regular Patient's Activity: as tolerated Follow-Up Instructions/Appts: -Please follow-up with your primary care provider within 7 days after discharge. -Please follow-up with your chief hydroelectric station operator regarding your lungNodules -Please follow-up with your psychiatrist after discharge -We have made changes to your home medications, please read the instructions carefully. -Please come back to the hospital if your symptoms got worse. Medications at Discharge Discharge Medications: Stop taking the following medications: Alprazolam (Alprazolam) 1 MG TABLET ORAL 4 TIMES A DAY Qty = 120 Quetiapine Fumarate (Quetiapine Fumarate) (Unknown Strength) TABLET ORAL As Directed Qty = 30 Continue taking these medications: Tiotropium Henning (Spiriva) 18 MCG CAP.W.DEV 1 Capsule Inhale through mouth DAILY Qty = 30 Comments: DID NOT RECEIVE IN HOSPITAL Fluticasone/Salmeterol (Advair 250-50 Diskus) 1 EACH BLST.W.DEV 1 Puff Inhale through mouth TWICE DAILY Comments: NOT TAKEN IN HOSPITAL Omeprazole (Omeprazole) 20 MG CAPSULE.DR 1 Tablet ORAL DAILY BEFORE BREAKFAST as needed for GERD Days = 14 Comments: NOT TAKEN IN HOSPITAL Oxycodone HCl (Oxycodone HCl) (Unknown Strength) TABLET 1 Tablet ORAL EVERY SIX HOURS Qty = 90 Comments: Last Taken: 10/24/16 Time: 8:00 AM Buspirone HCl (Buspirone HCl) 15 MG TABLET 1 Tablet ORAL TWICE DAILY Qty = 60 Comments: Last Taken: 10/24/16 Time: 8:00 AM Albuterol Sulfate (Ventolin Hfa) 90 MCG HFA.AER.AD 1-2 Puff Inhale through mouth As Directed Qty = 18 Comments: NOT TAKEN IN HOSPITAL Levothyroxine Sodium (Levothyroxine Sodium) 75 MCG TABLET 1 Tablet ORAL DAILY Comments: Last Taken: 10/24/16 Time: 6:00 AM Start taking the following new medications: Folic Acid (Folic Acid) 1 MG TABLET 1 Milligram ORAL DAILY Days = 28 No Refills Comments: Last Taken: 10/24/16 Time: 8:00 AM Thiamine HCl (Vitamin B-1) 100 MG TABLET 100 Milligram ORAL DAILY Days = 28 No Refills Comments: Last Taken: 10/24/16 Time: 8:00 AM Multivitamin (One Daily Multivitamin) 1 EACH TABLET 1 Tablet ORAL DAILY Days = 28 No Refills Comments: Last Taken: 10/24/16 Time: 8:00 AM Melatonin (Melatonin) 5 MG TABLET 5 Milligram ORAL AT BEDTIME Days = 28 No Refills Comments: NOT TAKEN IN HOSPITAL Nicotine (Nicotine Patch) 14 MG/24 HOUR PATCH.TD24 14 Milligram On the skin DAILY Days = 28 No Refills Comments: Last Taken: 10/24/16 Time: 8:00 AM Lorazepam (Lorazepam) 0.5 MG TABLET 1 Tablet ORAL TAPER Qty = 6 No Refills Instructions: TAKE 1 TABLET THREE TIMES DAILY FOR 1 DAY THEN 1 TABLET TWICE DAILY FOR 1 DAY THEN 1 TABLET MEENA FOR ONE DAY THEN STOP Comments: Last Taken: 10/24/16 Time: 6:00 AM Copies To: AISSATOU KAUFFMAN,KIANA Hahn; BECK AZEVEDO APRN Attending MD Review Statement Documenting Attending: JIMMY SAVAGE MD Other Findings: agree with the above discharge plan.
[2016-10-19 14:33] VITALS: BP 140/70
--- NOTE | 2016-10-19 15:33 | PN- Psychiatry ---
Assessment/Plan Impression: Identifying Info: 61 yo SAMIRA REDDY after being found unresponsive in her apartment on 10/15/16. Subsequently dx with hypernatremia, femoral neck fracture, hypothyroid, ARF, and lung nodule and tranfered to 2[facility]. SUBJECTIVE "I'm an addict, no doctor is going to fix me... I was on Valium for 20 years." When PEC status discussed with pt she states "you can't make me stay... I'll hate all of you and I wont be cooperative... I'm just going to leave." OBJECTIVE Mental Status Exam Presentation/Appearance: Pt looks significantly older than stated age, copperative intially but becomes somewhat less so, lying in bed in hospital garb Orientation: x4 Sensorium: Awake and alert Eye contact: Fair Affect: Constricted Mood: "I'm okay... I cant just be day to day outpatient," Irritible Depression: Denies, does become tearful when told she needs to stay until safe plan is established Anxiety: Denies Thought Content: - Denies SI/HI, AH/VH, PI. States and also believes they will not kill themselves. - Denies Hopeless/Helpless Thoughts Thought Process: Perseverative on leaving hospital Speech: Repetitive, patient often repeats her self, somewhat dysarthric Judgment: Poor Insight: Poor Cognition: Memory: Endorses deficits, able to name president and state fact of childhood Attention/Concentration: Fair MMSE: (did not assess) Brief ROS Gait: Impaired Sleep: Pt reports poor sleep r/t lack of seroquel Appetite: Adequate CIWA last 24 hrs 4,0,0,0,0,0 ASSESSMENT 61-year-old single female with a history of polysubstance use including prescribed marijuana, opiates, benzodiazepines with multiple recent falls is brought to the hospital with altered mental status. Patient has extremely poor insight and judgment, is gravely disabled and as a result danger to self. She has been threatening to elope and cannot be allowed to leave due to PEC status. Differential diagnosis By history alcohol use disorder Benzodiazepine use disorder, prescribed Opiate use disorder, prescribed Cannabis use disorder, prescribed Unspecified mood disorder Suggestion: 1. Please order 1:1 sitter to maintain safety, pt is an elopement risk and has hx of mutliple recent falls. Nursing mgmt, RN, and housestaff aware. 2. Patient may not leave the hospital AMA or otherwise until cleared by psychiatry, she remains on PEC. 3. Please start ramelteon 8 mg by mouth daily at bedtime if melatonin ineffective. We may consider restarting Seroquel in the future but patient is agreeable to try this med for now. 4. Continue CIWA and medicate appropriately. Continue vitamin supplimentation. 5. Please continue to avoid benzodiazepines, opioid analgesics, and meds with strong anticholinergic properties as much as possible to prevent further confusion. 6. Please initiate the following nonpharmacologic interventions: -Avoid nursing and medical procedures during sleep hours whenever possible - Cluster at night interventions that must be completed as much as possible to minimize sleep disruption - Decrease noise in patient area during sleeping hours - Reduce lighting at night - Ensure patient has any sensory aids close by that he regularly uses Thank you for including psychiatry in this case we will continue to follow. Tariq Hernadez APRN, pager [phone] Subjective Subjective: .
--- NOTE | 2016-10-19 16:11 | NUR ---
Referral received yesterday after receiving a call from YANELI Elliott of [facility]. This patient is a 61 year old woman, admitted to the hospital on 10/15 with a questionable overdose having been found unresponsive. This patient is known to me remotely from previous admission last January. At that time, her ultimate discharge was to [facility] inpatient psychiatric unit. Call from [facility] yesterday. That agency was getting ready to close the case; unaware of how that agency received referral, or to what extent additional in home services were provided. Call placed to [facility] today; message left. Await return call from [facility]. Case discussed with pillowcase folder and with psychiatric BARREL DEDENTING MACHINE OPERATOR. Follow.
[2016-10-19 23:00] VITALS: BP 98/66
[2016-10-20] VITALS (9 sets, daily range): BP systolic 90–120; BP diastolic 60–80
[2016-10-20] MEDS ORDERED: MELATONIN5 M7 PO (07:51)
[2016-10-20] MEDS ORDERED: VITAMIN B-1100 MG PO (07:51)
[2016-10-20] MEDS ORDERED: ONE DAILY MULT1 EAC2 PO (07:51)
[2016-10-20] MEDS ORDERED: FOLIC ACID1 M1 PO (07:51)
--- NOTE | 2016-10-20 12:10 | PN- Psychiatry ---
See Addendum Assessment/Plan Impression: The most likely cause of the patient's altered mental status was probably an accidental overdose on benzodiazepines and opiates. She has had several presentations for overdose, and in the spring was hospitalized in acute psychiatry. The patient has no recollection of the discharge plan at that time. Although she denies any history of suicide attempt, she was hospitalized here in psychiatry in 2006, and the discharge summary from the medical hospital notes that she had a history of suicide attempts. The patient is a hazard to herself, and would benefit from acute psychiatry, followed by [facility]. She is resisting admission to psychiaty, and promises to come to the Intensive Outpatient Program. The patient is concerned about her animals; her neighbors on either side of her apartment are caring for them. Suggestion: 1. Continue tapering lorazepam/Ativan to off before discharge. Please provide lorazepam dosing 0.5 mg PO every 8 hours as needed for agitation. Please continue to provide thiamine, MVI and folic acid daily. 2. Social work is following and reports that the patient is also being followed by [facility]. 3. Continue to hold Seroquel. 4. Continue melatonin 5 mg by mouth at bedtime for insomnia. 5. Continue buspirone 15 mg PO 2X/day. 7. The patient may not be discharged AMA or otherwise until cleared by psychiatry. We are initiating a bed search for acute inpatient psychiatry. Reginaldo Gamble APRN, Pager [phone] Subjective Subjective: MMSE/Folstein today at 0955: Score 23/30, suggestive of mild cognitive impairment. Oriented except for day (Off by one day) and date. Able to one iteration of Serial 7s, declined further effort. Spelled 'WORLD' forward and 2 of 5 errors in spelling backward. Follows 1 of 3 instructions on 3-satge command. Thought Content: Denies auditory and visual hallucinations. Denies suicidal or homicidal ideation, and denies history of suicide ideation or attempt. She reports that she "did well with sleep, but its not as good as with Seroquel. " She is agreeable to continue to try medications, such as melatonin, Ramelteon or trazodone. She reports that Dr. Nolan Irizarry had mentioned that he thought she was perfect for some research concerning "health." Asked about the risks of returning home without physical rehab or without stabilization on psychotropic medications, she cannot enumerate any, despite review of these risks, including fall, relapse on benzodiazepines ("Where would I get them? I had the doctor call two days before I came here to try and get a substitute, and they said no.") When reminded that Dr. Winston had called [facility] on her behalf on 10/06/16, which was 8 days FORMULA BOTTLER, she states, "OK , so shoot me." She cannot explain what happened to her alprazolam, delivered on 09/22/16 for 30 days, which she used or lost before 10/06/16. The patient has almost no insight into her condition, nor the risks of taking opiate or benzodiazepine medications other than as ordered. Her judgment is poor , as she had previously refused ECF after presentation at the ED with a fractured hip the previous week, and had left AMA. Objective Last 24 Hrs of Vital Signs/I&O Vital Signs Date Time Temp Pulse Resp B/P Pulse O2 O2 Flow FiO2 Ox Delivery Rate 10/20 0742 97.9 85 20 90/60 92 Room Air 10/20 0600 98.5 87 18 100/60 /08 0400 98.5 87 18 100/60 08 0200 98.5 87 18 100/60 02/08 0000 98.3 82 18 98/66 02 2300 98.3 82 18 98/66 94 Room Air 10/19 1433 97.7 91 20 140/70 98 Intake & Output 10/20 1600 / 0800 02/08 0000 Intake Total 800 850 Output Total 750 1400 Balance 50 -550 Intake, IV 600 600 Intake, Oral 200 250 Output, Urine 750 1400 Current Medications: Current Medications Sig/Khloe Start time Last Medication Dose Route Stop Time Status Admin Acetaminophen 650 MG Q6P PRN 10/15 2100 AC 10/18 IV 0541 Acetaminophen 650 MG Q6P PRN 10/15 1800 AC 10/17 PO 1709 Albuterol Sulfate 3 ML Q 3-4 HRS PRN PRN 10/15 1830 AC INH Albuterol Sulfate 2 PUF Q6P PRN 10/15 1745 AC INH Aspirin 81 MG DAILY 10/16 1000 AC 10/20 PO 0949 Buspirone HCl 15 MG BID 10/15 2200 AC 10/20 PO 0949 Enoxaparin Sodium 40 MG DAILY 10/17 1112 AC 10/20 SC 0949 Folic Acid 1 MG DAILY 10/18 1817 AC 10/20 PO 0949 Levothyroxine Sodium 0.075 MG DAILY AC 10/16 0700 AC 10/20 PO 0553 Lorazepam 1 MG Q8 10/20 1400 AC PO Lorazepam 1 MG Q6 10/17 1800 DC 10/20 PO 0553 Lorazepam 0 Q1P PRN 10/15 1730 AC 10/19 IV 1648 Melatonin 5 MG AT BEDTIME 10/18 2200 AC 10/19 PO 2056 Morphine Sulfate 1 MG Q6-PRN PRN 10/15 1800 AC 10/20 IV 0949 Multivitamins 1 TAB DAILY 10/18 1817 AC 10/20 PO 0949 Potassium Chloride 40 MEQ Q13H 10/16 2000 DC 10/20 Dextrose/Water 1,000 ML IV 0015 Thiamine HCl 100 MG DAILY 10/18 181 AC 10/20 PO 0949 Results Last 24 Hrs of Labs/Mics: Laboratory Tests 10/19 619 Chemistry Free T4 (0.78 - 2.44 ng/dL) 1.05
--- NOTE | 2016-10-20 12:56 | PN- Housestaff ---
See Addendum Subjective Follow-up For: Unresponsiveness Subjective: Pt is seen and examined at bedside. Patient is eager to know heart disposition and reports that she needs to go home take care of her pets. However, she then states that the Zofran that she lives with will be helping with pet. Reports that she slept much better yesterday compared to the previous day and is not requesting Seroquel Review of Systems Constitutional: Reports: no symptoms. Objective Last 24 Hrs of Vital Signs/I&O Vital Signs Date Time Temp Pulse Resp B/P Pulse O2 O2 Flow FiO2 Ox Delivery Rate 10/20 1438 98.2 62 19 120/80 94 10/20 0800 Room Air 10/20 0742 97.9 85 20 90/60 92 Room Air 10/20 0600 98.5 87 18 100/60 / 0400 98.5 87 18 100/60 10/20 0200 98.5 87 18 100/60 02/08 0000 98.3 82 18 98/66 10/19 2300 98.3 82 18 98/66 94 Room Air Intake & Output 10/20 1600 10/20 0800 /08 0000 Intake Total 780 800 850 Output Total 469 700 7884 Balance 130 50 -550 Intake, IV 300 600 600 Intake, Oral 480 200 250 Number 0 Bowel Movements Output, Urine 478 602 8612 Physical Exam General Appearance: Alert, Oriented X3, Cooperative Cardiovascular: Regular Rate, Normal S1 Lungs: Clear to Auscultation, Normal Air Movement Abdomen: Normal Bowel Sounds, Soft, No Tenderness Neurological: Normal Speech, Strength at 5/5 X4 Ext, Normal Tone, Sensation Intact Assessment/Plan Assessment: Patient has chief complaint of AMS. She was found down unresponsive for unknown period of time. Head CT negative for acute infarct or hemorrhage She has several possible etiology for his presentation: Alcohol intoxication, alcohol withdrawal seizures, CVA, suicide attempt, opiate abuse, and cannot rule out underlying infection/SIRS given that she had Tmax 100.4, elevated white count and tachycardia. [place] ox shows evidence of alcohol, cocaine, Tylenol, methadone , or opiates. She had lactic acid of 2.6 subsequently trended down to 1.5. Note that patient has previous admission with similar presentation requiring CPR in the field and intubation with pressors in ICU, subsequently improved and Tuesday and transferred to general floor Altered mental status/unrepsonsiveness. Errantly result patient is alert oriented with intact mentation. Original plan was to discharge patient to Inpatient Psychiatry. However, according to psychiatry department patient is cleared by them to be discharged for home after social work consultation tomorrow morning. Hypernatremia: * Resolved * Will trend BEP Femoral neck fracture: Pt had recent admission on Sep 30 for femoral neck fracture. She left AMA without any intervention. CT at this time reads "Question left femoral head AVN." * Ortho Consult if necessary Hypothyroidism: * . Pt reports non compliance, therefore non need to increase dose. Will continue 88 mcg. Lung nodule: * Prior chest CT -Interval increase in spiculated left upper lobe nodule measuring 1 x 1.5 cm. Appearance is concerning for neoplasm. * We will follow pulmonology recommendation Acute renal failure: * resolved. 2/2 hypoperfusion (prerenal). * Will monitor kidney function Full code Problem List: 1. Unresponsive state Pain Ratin Pain Location: none Pain Goal: Remain pain free Pain Plan: The management for mild pain Oxycodone for moderate pain Tomorrow's Labs & Rationales: None-discharged tomorrow
--- NOTE | 2016-10-20 13:32 | Patient Discharge Instructions ---
Discharge Instructions General Discharge Information You were seen/treated for: Altered mental status due to polypharmacy Hypernatremia RENE Special Instructions: -Please follow-up with your primary care provider within 7 days after discharge. -please follow-up with the first assist regarding Lung Nodules. -Please follow-up with your psychiatry (CUATE Barahona) on tuesday (10/25) -We have made changes to your home medications, please read the instructions carefully. -Please come back to the hospital if your symptoms got worse. Diet Recommended Diet: Regular Activity Full Activity/No Limits: Yes (as tolerated) Acute Coronary Syndrome Inclusion Criteria At DC or during hospital stay patient has or had the following: ACS DIAGNOSIS No Discharge Core Measures Meds if any: Prescribed or Continued at Discharge Meds if any: NOT Prescribed or Continued at Discharge Congestive Heart Failure Inclusion Criteria At DC or during hospital stay patient has or had the following: CHF DIAGNOSIS No Discharge Core Measures Meds if any: Prescribed or Continued at Discharge Meds if any: NOT Prescribed or Continued at Discharge Cerebrovascular accident Inclusion Criteria At DC or during hospital stay patient has or had the following: CVA/TIA Diagnosis No Discharge Core Measures Meds if any: Prescribed or Continued at Discharge Meds if any: NOT Prescribed or Continued at Discharge Venous thromboembolism Inclusion Criteria VTE Diagnosis No VTE Type NONE VTE Confirmed by (Test) NONE Discharge Core Measures - Per Current guidelines, there needs to be overlap - treatment for the first 5 days of Warfarin therapy. - If discharged on Warfarin prior to 5 days of - overlap therapy, the patient will need to be - assessed for post discharge needs including - *Post discharge parental anticoagulation - *Warfarin and/or parental anticoagulation education - *Follow up date to check INR post discharge At least 5 days overlap therapy as Inpatient No Meds if any: Prescribed or Continued at Discharge Note: Overlap Therapy is Warfarin and Anticoagulant Meds if any: NOT Prescribed or Continued at Discharge
[2016-10-20] MEDS ORDERED: NICOTINE PATCH1 EAC2 TOP (14:38)
--- NOTE | 2016-10-20 15:54 | PN- Att Addend ---
Attending MD Review Statement Attending Statement Attending MD Statement: examined this patient, discuss w/resident/PA/RUNNER OUT, agreed w/resident/PA/RUNNER OUT, reviewed EMR data (avail), discussed w/case mgmt Attending Assessment/Plan: Pt seen and examined at bedside. Unresponsive episode unclear etiology. Psych following patient closely. Patient currently on benzo taper and awaiting discharge to inpatient psychiatry. Insominia- seroquel was stopped. pt currently on melatonin at bedtime Anxiety- on buspirone. d/w pt the care plan.
[2016-10-21] VITALS (7 sets, daily range): BP systolic 100–120; BP diastolic 60–80
--- NOTE | 2016-10-21 07:15 | NUR ---
Following patients progress. Call received from [facility] worker Dena Rios, yesterday ([phone]). Their agency had assisted with having homemaking services through [employer]. Late in day I had a conversation with Tariq Hernadez APRN of psychiatry. Psychiatry does not feel that the patient needs inpatient psychiatric level of care any longer, and they intend to revoke the PEC. Psychiatry would like patient to remain in hospital so appropriate aftercare plans can be arranged; she reportedly told Selma Gamble APRN that she "promised" that she would come to IOP. PT is still recommending STR due to functional limitations, and if she would agree to STR, followed by IOP, that would be an optimal plan. I will discuss with behavioral health case manager. Follow.
[2016-10-21 08:52] LABS: ABSOLUTE BASOPHIL COUNT 0.1 /CUMM (0.0-0.2); ABSOLUTE EOSINOPHIL COUNT 0.4 /CUMM (0.0-0.7); ABSOLUTE LYMPH COUNT 3.5 /CUMM (1.2-3.4); ABSOLUTE MONOCYTE COUNT 1.4 /CUMM (0.10-0.60); BASOPHIL % 0.6 % (0.0-2.0); EOSINOPHIL % 2.3 % (0-5); MEAN CORPUSCULAR HGB 33.6 PG (27.0-31.0); MEAN CORPUSCULAR HGB CONC 33.3 G/DL (33.0-37.0); MEAN CORPUSCULAR VOLUME 100.8 FL (81.0-99.0); MEAN PLATELET VOLUME 8.3 FL (7.4-10.4); RBC DISTRIBUTION WIDTH 14.1 % (11.5-14.5); RED BLOOD CELL CT 4.44 /CUMM (4.20-5.40); WHITE BLOOD CELL COUNT 16.3 /CUMM (4.8-10.8)
[2016-10-21 09:40] LABS: HEMATOCRIT 44.8 % (37-47)
[2016-10-21 09:41] LABS: PLATELET COUNT 399 /CUMM (130-400)
[2016-10-21 09:42] LABS: GRANULOCYTE % 67.1 % (42.2-75.2)
--- NOTE | 2016-10-21 11:15 | PN- Pulmonary ---
Subjective HPI/Critical Care Issues: DOing well more awake Objective Current Medications: Current Medications Sig/Khloe Start time Last Medication Dose Route Stop Time Status Admin Acetaminophen 650 MG .STK-MED ONE 10/20 1843 DC PO 10/20 1844 Acetaminophen 650 MG Q6P PRN 10/15 2100 AC 10/18 IV 0541 Acetaminophen 650 MG Q6P PRN / 1800 AC 10/20 PO 1847 Albuterol Sulfate 3 ML Q 3-4 HRS PRN PRN 10/15 1830 AC INH Albuterol Sulfate 2 PUF Q6P PRN 10/15 1745 AC INH Aspirin 81 MG DAILY 10/16 1000 AC 10/21 PO 0928 Buspirone HCl 15 MG BID 10/15 2200 AC 10/21 PO 0928 Enoxaparin Sodium 40 MG DAILY 10/17 1112 AC 10/21 SC 0928 Folic Acid 1 MG DAILY 10/18 181 AC 10/21 PO 0928 Levothyroxine Sodium 0.075 MG DAILY AC 10/16 0700 AC 10/21 PO 0552 Lorazepam 0.5 MG Q8P PRN 10/20 1600 AC 10/20 PO 10/27 1559 1848 Lorazepam 1 MG Q8 10/20 1400 AC 10/21 PO 0552 Lorazepam 0 Q1P PRN 10/15 1730 AC 10/19 IV 1648 Melatonin 5 MG AT BEDTIME PRN 10/20 2000 DC PO Melatonin 5 MG AT BEDTIME 10/18 2200 AC 10/20 PO 2014 Morphine Sulfate 1 MG Q6-PRN PRN 10/15 1800 AC 10/21 IV 0927 Multivitamins 1 TAB DAILY 10/18 181 AC 10/21 PO 0928 Nicotine 14 MG DAILY 10/20 1415 AC 10/20 TOP 1658 Thiamine HCl 100 MG DAILY 10/18 181 AC 10/21 PO 0928 Vital Signs & I&O Last 24 Hrs of Vitals and I&O: Vital Signs Date Time Temp Pulse Resp B/P Pulse O2 O2 Flow FiO2 Ox Delivery Rate 10/21 0700 Room Air 10/21 0600 98.2 62 18 120/80 10/21 0559 97.9 88 20 110/68 93 Room Air 10/21 0400 98.1 66 18 110/70 10/21 0200 98.1 66 18 110/70 10/21 0000 98.1 66 18 110/70 10/20 2223 98.1 66 19 110/70 94 Room Air 10/20 2200 98.2 62 18 120/80 10/20 2000 98.2 62 18 120/80 10/20 1438 98.2 62 19 120/80 94 Intake & Output 10/21 1600 10/21 0800 10/21 0000 Intake Total 300 300 Output Total Balance 300 300 Intake, Oral 300 300 Impression/Plan Impression/Plan Impression/Plan: Physical exam:awake and oriented RS: Clear lungs bilaterally CVS: RRR, No murmurs Neurological: Pin point pupils, no obvious weakness, responds after exxessive stimulation Abdomen: Normal contour no tenderness Extremities: No C,C or E CT scan of the chest abdomen and pelvis reviewed which shows that she has an increasing spiculated left upper lobe nodule which is now 1.5 cm 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 The left innominate vein. She has significant emphysema with bilateral fibrosis atelectasis with small calcified lymph nodes with significant atherosclerosis. She also has a small renal stone with the mild thickening of the distal ascending colon with Wilder catheter with the new L1 vertebral compression fracture with previous multiple compression fractures of the thoracic spine and avascular necrosis of the femoral head. IMPRESSION This is a 61-year-old lady with history of depression, moderate to severe COPD, chronic alcohol use, chronic pain syndrome, previous hep C, multiple medication use, previous history of anxiety and depression and previous probable suicide attempt, hypothyroidism, significant alcohol use with past alcohol withdrawal, seizure, mainly related to alcohol withdrawal, osteoporosis with multiple compression fractures, previous admission to with unresponsive state, status post CPR with rib fractures, prolonged intubation with multiple infections in the lung, previous lung nodule highly suggestive of malignancy but patient has been noncompliant with follow-up, previous sternal fracture, avascular necrosis of the hip, now comes in with * Improving. Altered mental status with metabolic encephalopathy, most likely related to polypharmacy with significant hypernatremia, with hypovolemia * Previous history of alcoholism with no active withdrawal at this time. Pt may have had a seizure per ems record. Recent history of significant alcohol use * Probable aspiration pneumonitis now resolved * Resolved Acute kidney injury. * Resolved elevated hemoglobin with erythrocytosis, most likely related to severe hypoxemia and dehydration. * Severe COPD * Lung nodule which is increasing in size highly suggestive of lung malignancy. * Significant malnutrition. * Previous cephalic vein thrombosis with no evidence suggestive of acute venous thromboembolism. * Previous sepsis with Klebsiella and MRSA probably from skin and pneumonia with negative ADRI for any endocarditis. No clinical evidence suggestive of any infection, but patient may have had aspiration * Multiple compression fractures with severe osteoporosis with avascular necrosis of the hip. * Depression, anxiety Poor overall performance status. RECOMMENDATION. watch her off antibiotics Keep her head of bed elevated. DIscussed with patient in detail She will follow up with me. My number and other info given to the patient and she will call us Patient certainly has most likely lung malignancy. This needs to be followed. Patient has been noncompliant, and was made aware of all risks. Please make an appt upon dc to work up of this nodule. Pt is aware and accepts all risks for non compliance. Have her call us for follow up
--- NOTE | 2016-10-21 13:31 | PN- Housestaff ---
See Addendum Subjective Follow-up For: Unresponsiveness Subjective: Patient is seen and examined at bedside. She is eager for discharge. She does not endorse any acute complaints including shortness of breath, chest pain, palpitation, fever, chills, nausea, abdominal pain or dysuria. Review of Systems Constitutional: Reports: see HPI. Objective Last 24 Hrs of Vital Signs/I&O Vital Signs Date Time Temp Pulse Resp B/P Pulse O2 O2 Flow FiO2 Ox Delivery Rate 10/21 799 Room Air 10/21 0600 98.2 62 18 120/80 10/21 0559 97.9 88 20 110/68 93 Room Air 10/21 0400 98.1 66 18 110/70 10/21 0200 98.1 66 18 110/70 10/21 0000 98.1 66 18 110/70 10/20 2223 98.1 66 19 110/70 94 Room Air 10/20 2200 98.2 62 18 120/80 10/20 2000 98.2 62 18 120/80 10/20 1438 98.2 62 19 120/80 94 Intake & Output 10/21 1600 10/21 0800 10/21 0000 Intake Total 300 300 Output Total Balance 300 300 Intake, Oral 300 300 Physical Exam General Appearance: Alert, Oriented X3, Cooperative Skin: No Significant Lesion HEENT: Atraumatic, PERRLA, EOMI Neck: Supple, No JVD Lymphatic: Cervical nl Cardiovascular: Regular Rate, Normal S1, Normal S2 Lungs: Normal Air Movement Abdomen: Normal Bowel Sounds, Soft, No Tenderness Neurological: Normal Speech, Strength at 5/5 X4 Ext, Normal Tone, Sensation Intact Extremities: No Clubbing, No Cyanosis, No Edema Vascular: Pulses Symmetrical Current Medications: Current Medications Sig/Khloe Start time Last Medication Dose Route Stop Time Status Admin Acetaminophen 650 MG .STK-MED ONE 10/20 1843 DC PO 10/20 1844 Acetaminophen 650 MG Q6P PRN 10/15 2100 AC 10/18 IV 0541 Acetaminophen 650 MG Q6P PRN 10/15 1800 AC 10/20 PO 1847 Albuterol Sulfate 3 ML Q 3-4 HRS PRN PRN 10/15 1830 AC INH Albuterol Sulfate 2 PUF Q6P PRN 10/15 1745 AC INH Aspirin 81 MG DAILY 10/16 1000 AC 10/21 PO 0928 Buspirone HCl 15 MG BID 10/15 2200 AC 10/21 PO 0928 Enoxaparin Sodium 40 MG DAILY 10/17 1112 AC 10/21 SC 0928 Folic Acid 1 MG DAILY 10/18 1817 AC 10/21 PO 0928 Levothyroxine Sodium 0.075 MG DAILY AC 10/16 0700 AC 10/21 PO 0552 Lorazepam 0.5 MG Q8P PRN 10/20 1600 AC 10/20 PO 10/27 1559 1848 Lorazepam 1 MG Q8 10/20 1400 AC 10/21 PO 0552 Lorazepam 0 Q1P PRN 10/15 1730 AC 10/19 IV 1648 Melatonin 5 MG AT BEDTIME PRN 10/20 2000 DC PO Melatonin 5 MG AT BEDTIME 10/18 2200 AC 10/20 PO 2014 Morphine Sulfate 1 MG Q6-PRN PRN 10/15 1800 AC 10/21 IV 0927 Multivitamins 1 TAB DAILY 10/18 1817 AC 10/21 PO 0928 Nicotine 14 MG DAILY 10/20 1415 AC 10/20 TOP 1658 Thiamine HCl 100 MG DAILY 10/18 1817 AC 10/21 PO 0928 Assessment/Plan Assessment: Patient has chief complaint of AMS. She was found down unresponsive for unknown period of time. Head CT negative for acute infarct or hemorrhage She has several possible etiology for his presentation: Alcohol intoxication, alcohol withdrawal seizures, CVA, suicide attempt, opiate abuse, and cannot rule out underlying infection/SIRS given that she had Tmax 100.4, elevated white count and tachycardia. [place] ox shows evidence of alcohol, cocaine, Tylenol, methadone , or opiates. She had lactic acid of 2.6 subsequently trended down to 1.5. Note that patient has previous admission with similar presentation requiring CPR in the field and intubation with pressors in ICU, subsequently improved and Tuesday and transferred to general floor Altered mental status/unrepsonsiveness. Errantly result patient is alert oriented with intact mentation. Original plan was to discharge patient to Inpatient Psychiatry. However, according to psychiatry department patient is cleared by them to be discharged for home after social work consultation tomorrow morning. Hypernatremia: * Resolved * Will trend BEP Femoral neck fracture: Pt had recent admission on Sep 30 for femoral neck fracture. She left AMA without any intervention. CT at this time reads "Question left femoral head AVN." * Ortho Consult if necessary Hypothyroidism: * . Pt reports non compliance, therefore non need to increase dose. Will continue 88 mcg. Lung nodule: * Prior chest CT -Interval increase in spiculated left upper lobe nodule measuring 1 x 1.5 cm. Appearance is concerning for neoplasm. * Patient had an extensive discussion with us (medical team) about the importance of following up regarding spiculated lung nodule which is highly suggestive of neoplasm. We also had a discussion with Dr. Anderson (pulmonology) who also saw patient and reiterated the importance of following up with him. Patient verbalizes understanding and promised to follow-up with Dr. Anderson for workup and eventual treatment and management with possible referral to oncology/ radiation oncology of what appears to be lung malignancy. Acute renal failure: * resolved. 2/2 hypoperfusion (prerenal). * Will monitor kidney function Full code Problem List: 1. Unresponsive state Pain Ratin Pain Location: none Pain Goal: Pain 4 or less Pain Plan: apap for mild pain morphine for severe pain Tomorrow's Labs & Rationales: none-discharge
[2016-10-22 02:00] VITALS: BP 110/70
[2016-10-22 06:00] VITALS: BP 90/60
[2016-10-22 06:34] VITALS: BP 90/60
--- NOTE | 2016-10-22 10:29 | PN- Housestaff ---
See Addendum Subjective Follow-up For: Unresponsiveness Subjective: Patient is seen and examined at bedside. Earlier she was seen ambulating with PT using a rolling walker around the hospital. Patient is eager for discharge and is adamant that he does not want to go to short-term rehabilitation or any other place other than home. She does deny any chest pain, palpitation, increased shortness of breath, dizziness, weakness, lethargy, fever, chills, abdominal pain or dysuria. No acute overnight event reported by nursing staff. Review of Systems Constitutional: Denies: no symptoms, see HPI. Objective Last 24 Hrs of Vital Signs/I&O Vital Signs Date Time Temp Pulse Resp B/P Pulse O2 O2 Flow FiO2 Ox Delivery Rate 10/22 0634 97.5 87 20 90/60 92 Room Air 10/22 0600 97.5 87 20 90/60 10/22 0200 98.0 88 20 110/70 10/22 0200 98.0 88 20 110/70 92 Room Air 10/21 2146 98.8 81 18 100/60 94 10/21 1433 97.9 81 20 100/60 92 Intake & Output 10/22 1600 10/22 0800 10/22 0000 Intake Total 170 125 Output Total Balance 170 125 Intake, IV 0 Intake, Oral 170 125 Number 0 Bowel Movements Physical Exam General Appearance: Alert, Oriented X3, Cooperative Skin: No Rashes, No Breakdown HEENT: Atraumatic, PERRLA, EOMI, Mucous Membr. moist/pink Neck: Supple, No JVD Lymphatic: Cervical nl Cardiovascular: Regular Rate, Normal S1, Normal S2, No Murmurs Lungs: Clear to Auscultation, Normal Air Movement Abdomen: Normal Bowel Sounds, Soft, No Tenderness, No Hepatospenomegaly Neurological: Normal Speech, Normal Tone, Sensation Intact Extremities: No Clubbing, No Cyanosis, No Edema, Normal Pulses, No Tenderness/ Swelling Assessment/Plan Assessment: Patient has chief complaint of AMS. She was found down unresponsive for unknown period of time. Head CT negative for acute infarct or hemorrhage She has several possible etiology for his presentation: Alcohol intoxication, alcohol withdrawal seizures, CVA, suicide attempt, opiate abuse, and cannot rule out underlying infection/SIRS given that she had Tmax 100.4, elevated white count and tachycardia. [place] ox shows evidence of alcohol, cocaine, Tylenol, methadone , or opiates. She had lactic acid of 2.6 subsequently trended down to 1.5. Note that patient has previous admission with similar presentation requiring CPR in the field and intubation with pressors in ICU, subsequently improved and Tuesday and transferred to general floor Altered mental status/unrepsonsiveness. Errantly result patient is alert oriented with intact mentation. Original plan was to discharge patient to Inpatient Psychiatry. However, according to psychiatry department patient is cleared by them to be discharged for home . Patient was not amenable to short-term rehabilitation. However she significantly improved during her physical therapy session today and was determined by physical therapy to be stable with adequate strength and not needing any short-term rehabilitation placement will benefit benefit by having home PT. Plan Patient be discharged today with home PT. Hypothyroidism: * . Pt reports non compliance, therefore non need to increase dose. Will continue 88 mcg. Lung nodule: * Prior chest CT -Interval increase in spiculated left upper lobe nodule measuring 1 x 1.5 cm. Appearance is concerning for neoplasm. * Patient had an extensive discussion with us (medical team) about the importance of following up regarding spiculated lung nodule which is highly suggestive of neoplasm. We also had a discussion with Dr. Anderson (pulmonology) who also saw patient and reiterated the importance of following up with him. Patient verbalizes understanding and promised to follow-up with Dr. Anderson for workup and eventual treatment and management with possible referral to oncology/ radiation oncology of what appears to be lung malignancy. Acute renal failure: * resolved. 2/2 hypoperfusion (prerenal). * Will monitor kidney function Problem List: 1. Unresponsive state Pain Ratin Pain Location: none Pain Goal: Remain pain free Pain Plan: home pain meds upon discharge Tomorrow's Labs & Rationales: no labs discharge
--- NOTE | 2016-10-22 11:44 | NUR ---
Case discussed at [facility]'s this am. Patient has been cleared for discharge home with home PT. Call placed to EPS to notify them of home discharge; message left with Mino Ray (worker Dena Rios off today). Call placed to TE[employer] to notify them of patients discharge; homemeker to be rescheduled for next week. Case discussed with psychiatric [employer] and Chef. patient reports she has plenty of food at home; medications get delivered from [employer]. When I met with patient earlier this am, she did give me permission to speak with her sister and to ask her sister to call her. I called Caroline and she will call Elisa. Elisa will receive follow up Behavioral Health aftercare from Dr. Ewing, and will be provided with the phone number for [facility]. Please call if other social work needs are identified.
--- NOTE | 2016-10-22 12:09 | PN- Psychiatry ---
See Addendum Assessment/Plan Impression: The patient is not suicidal, and has improved insight, acknowledging that her presentation to the hospital was probably the result of an accidental overdose. We are unable to accept the patient into [facility], as she is on benzos, and the program is abstinence-based. She cannot go to [facility] in [place], due to non-coverage by her insurance. She is interested in stopping benzos, and will discuss this with her psychiatrist, and call for an intake for therapy at [facility]. The patient would benefit from home services for medication administration, if possible. Suggestion: 1. Continue lorazepam/Ativan at the current dosing of 1 mg PO 3X/day, as needed for panic or severe anxiety. Please continue to provide thiamine, MVI and folic acid daily. 2. Social work is following and reports that the patient is also being followed by [employer] [employer]. 3. Continue to hold Seroquel. 4. Continue melatonin 5 mg by mouth at bedtime for insomnia. 5. Continue buspirone 15 mg PO 2X/day. 7. The patient is currently cleard for discharge from a psychiatry viewpoint. 8. The patient is to discuss tapering off benzos with her psychiatrist, and she will call [facility] to initiate therapy. I have provided her with the contact informaiton for [facility]. Reginaldo Gamble APRN, Pager [phone] Subjective Subjective: Alert and oriented. Denies SI/HI. Denies AVH, and no vidhi delusions. The patient has improved insight into the reason for her presentations to the hospital for accidental drug overdose. She states that she would like to continue to wean off benzodiazepines, and will discuss this with Dr. Winston, her psychiatrist. She is also agreeable to start therapy at [facility] at [address] [place] [address], and the contact information was left with her; she promises to call them to set up an intake appointment; Dr. Winston has been the medical nurse at [facility]. Objective Last 24 Hrs of Vital Signs/I&O Vital Signs Date Time Temp Pulse Resp B/P Pulse O2 O2 Flow FiO2 Ox Delivery Rate 10/22 0634 97.5 87 20 90/60 92 Room Air 10/22 0600 97.5 87 20 90/60 10/22 0200 98.0 88 20 110/70 10/22 0200 98.0 88 20 11070 92 Room Air 10/21 2146 98.8 81 18 100/60 94 10/21 1433 97.9 81 20 60 92 Intake & Output 10/22 1600 10/22 0800 10/22 0000 Intake Total 170 125 Output Total Balance 170 125 Intake, IV 0 Intake, Oral 170 125 Number 0 Bowel Movements
--- NOTE | 2016-10-22 13:48 | PN- Att Addend ---
See Addendum Attending Addendum Attending Brief Note Pt seen and examined at bedside. Pt being discharged home with home care and will be followed up closely by psychiatry. pt will be seen by pcp on tuesday after discharge. d/w pt the care plan. pt is ok by pscyhiatry to be discharged home.
[2016-10-22 15:03] VITALS: BP 110/70
--- NOTE | 2016-10-22 16:29 | NUR ---
WOUND CARE: REQUESTED BY NURSING STAFF TO EVALUATE PT FOR SKIN ALTERATIONS - UPON ASSESSMENT, PT PRESENTS WITHOUT SKIN ALTERATION, REDNESS OR BREAKDOWN RECOMMENDATION: PREVENTATIVE CARE PER FACILTY GUIDELINES WITH REPOSITIONING DIRECTED
[2016-10-22 22:58] VITALS: BP 112/70
[2016-10-23 07:03] VITALS: BP 106/66
--- NOTE | 2016-10-23 13:31 | PN- Housestaff ---
Subjective Follow-up For: Unresponsiveness Subjective: Patient is seen and examined at bedside. She is eager for discharge, repair the asked about getting the telephone number for the Police [employer] she can check on her pets. Patient also endorses some anxiety, but denies any increased agitation, or nightmares. She also denies any chest pain, palpitation, shortness of breath, fever, chills, nausea, vomiting or abdominal pain or dysuria. Patient denies any suicidal or homicidal ideation. Review of Systems Constitutional: Reports: no symptoms. Objective Last 24 Hrs of Vital Signs/I&O .. Physical Exam General Appearance: Alert, Oriented X3, Cooperative Other Physical Findings: Skin: No Rashes, No Breakdown HEENT: Atraumatic, PERRLA, EOMI, Mucous Membr. moist/pink Neck: Supple, No JVD Lymphatic: Cervical nl Cardiovascular: Regular Rate, Normal S1, Normal S2, No Murmurs Lungs: Clear to Auscultation, Normal Air Movement Abdomen: Normal Bowel Sounds, Soft, No Tenderness, No Hepatospenomegaly Neurological: Normal Speech, Normal Tone, Sensation Intact Extremities: No Clubbing, No Cyanosis, No Edema, Normal Pulses, No Tenderness/ Swelling Assessment/Plan Assessment: Patient has chief complaint of AMS. She was found down unresponsive for unknown period of time. Head CT negative for acute infarct or hemorrhage She has several possible etiology for his presentation: Alcohol intoxication, alcohol withdrawal seizures, CVA, suicide attempt, opiate abuse, and cannot rule out underlying infection/SIRS given that she had Tmax 100.4, elevated white count and tachycardia. [place] ox shows evidence of alcohol, cocaine, Tylenol, methadone , or opiates. She had lactic acid of 2.6 subsequently trended down to 1.5. Note that patient has previous admission with similar presentation requiring CPR in the field and intubation with pressors in ICU, subsequently improved and Tuesday and transferred to general floor Altered mental status/unrepsonsiveness. Errantly result patient is alert oriented with intact mentation. Original plan was to discharge patient to Inpatient Psychiatry. However, according to psychiatry department patient is cleared by them to be discharged for home . Patient was not amenable to short-term rehabilitation. However she significantly improved during her physical therapy session today and was determined by physical therapy to be stable with adequate strength and not needing any short-term rehabilitation placement will benefit benefit by having home PT. Plan Patient patient will most likely be discharged today as she is eager for discharge and is on a statin longer. #Benzodiazepine dependence Per psych recommendation patient was tapered in anticipation of discharge. Due to her history of withdrawal , It was deemed that will patient will be unsafe if she was discharged before a benzo taper was initiated. She is currently on lorazepam 0.5 mg 3 times a day taper, consult with psych about discharge dose as patient has tolerated the taper. Hypothyroidism: * . Pt reports non compliance, therefore non need to increase dose. Will continue 88 mcg. Lung nodule: * Prior chest CT -Interval increase in spiculated left upper lobe nodule measuring 1 x 1.5 cm. Appearance is concerning for neoplasm. * Patient had an extensive discussion with us (medical team) about the importance of following up regarding spiculated lung nodule which is highly suggestive of neoplasm. We also had a discussion with Dr. Anderson (pulmonology) who also saw patient and reiterated the importance of following up with him. Patient verbalizes understanding and promised to follow-up with Dr. Anderson for workup and eventual treatment and management with possible referral to oncology/ radiation oncology of what appears to be lung malignancy. Acute renal failure: * resolved. 2/2 hypoperfusion (prerenal). * Will monitor kidney function Problem List: 1. Unresponsive state Pain Ratin Pain Location: diffuse Pain Goal: Pain 4 or less Pain Plan: Acetaminophen for mild pain Oxycodone for moderate pain Tomorrow's Labs & Rationales: None-possible discharge
[2016-10-23 15:03] VITALS: BP 120/80
[2016-10-23 15:05] VITALS: BP 110/60
--- NOTE | 2016-10-23 15:14 | PN- Att Addend ---
Attending MD Review Statement Attending Statement Attending MD Statement: examined this patient, discuss w/resident/PA/[employer] SUPERVISOR, agreed w/resident/PA/[employer] SUPERVISOR, reviewed EMR data (avail), discussed w/nursing Attending Assessment/Plan: Pt seen and examined at bedside. pt given prn ativan dose as she is panicking about not able to go home today. Will d/w pscyhiatry about anxiety meds at discharge given the pt anxiety issues. d/w pt the care plan. pt is planning to go home tomorrow morning.
[2016-10-23 22:35] VITALS: BP 108/68
[2016-10-24 06:52] VITALS: BP 120/80
--- NOTE | 2016-10-24 07:50 | PN- Housestaff ---
Subjective Follow-up For: Unresponsiveness Subjective: She is seen and examined at bedside. She is adamant that regardless of found management she will be leaving today. Does not endorse any acute complain of increased anxiety, hallucinations, nightmares, suicidal or homicidal ideation. No acute overnight nursing report noted. She has been without a sitter for couple days with no eventful episodes noted. Review of Systems Constitutional: Reports: see HPI. Objective Last 24 Hrs of Vital Signs/I&O Vital Signs Date Time Temp Pulse Resp B/P Pulse O2 O2 Flow FiO2 Ox Delivery Rate 10/24 0652 97.5 96 18 120/80 95 Room Air 10/23 2235 97.7 88 20 108/68 93 Room Air Intake & Output 10/24 1600 10/24 0800 10/24 0000 Intake Total 500 800 Output Total 250 Balance 500 550 Intake, Oral 500 800 Number 0 Bowel Movements Output, Urine 250 Physical Exam General Appearance: Alert, Oriented X3, Cooperative Other Physical Findings: Respiratory: CTA B/L Cardiovascular: RRR, S1/S2, no m/g/r Abdomen: Nontender, soft bowel sounds, no organomegaly noted Extremities: No clubbing, no cyanosis or swelling noted Neurological: Alert oriented 3, speech intact, sensation intact, strength 5 out of 5 bilaterally in upper and lower extremities Assessment/Plan Assessment: Patient has chief complaint of AMS. She was found down unresponsive for unknown period of time. Head CT negative for acute infarct or hemorrhage She has several possible etiology for his presentation: Alcohol intoxication, alcohol withdrawal seizures, CVA, suicide attempt, opiate abuse, and cannot rule out underlying infection/SIRS given that she had Tmax 100.4, elevated white count and tachycardia. [place] ox shows evidence of alcohol, cocaine, Tylenol, methadone , or opiates. She had lactic acid of 2.6 subsequently trended down to 1.5. Note that patient has previous admission with similar presentation requiring CPR in the field and intubation with pressors in ICU, subsequently improved and Tuesday and transferred to general floor Altered mental status/unrepsonsiveness. Errantly result patient is alert oriented with intact mentation. Original plan was to discharge patient to Inpatient Psychiatry. However, according to psychiatry department patient is cleared by them to be discharged for home . Patient was not amenable to short-term rehabilitation. However she significantly improved during her physical therapy session today and was determined by physical therapy to be stable with adequate strength and not needing any short-term rehabilitation placement will benefit benefit by having home PT. Plan Patient patient will most likely be discharged today as she is eager for discharge and is on a statin longer. #Benzodiazepine dependence Ducted psych department today and recommended the patient be discharged on lorazepam 0.5 mg taper for the next 3 days. Hypothyroidism: * . Pt reports non compliance, therefore non need to increase dose. Will continue 88 mcg. Lung nodule: * Prior chest CT -Interval increase in spiculated left upper lobe nodule measuring 1 x 1.5 cm. Appearance is concerning for neoplasm. * Patient had an extensive discussion with us (medical team) about the importance of following up regarding spiculated lung nodule which is highly suggestive of neoplasm. We also had a discussion with Dr. Anderson (pulmonology) who also saw patient and reiterated the importance of following up with him. Patient verbalizes understanding and promised to follow-up with Dr. Anderson for workup and eventual treatment and management with possible referral to oncology/ radiation oncology of what appears to be lung malignancy. Acute renal failure: * resolved. 2/2 hypoperfusion (prerenal). * Will monitor kidney function Problem List: 1. Unresponsive state Pain Ratin Pain Location: none Pain Goal: Remain pain free Pain Plan: none-pt is being discharged Tomorrow's Labs & Rationales: none
[2016-10-24] MEDS ORDERED: LORAZEPAM0.5 M1 PO (10:04)
--- NOTE | 2016-10-24 15:25 | PN- Att Addend ---
Attending MD Review Statement Attending Statement Attending MD Statement: examined this patient, discuss w/resident/PA/MUD ANALYSIS OPERATOR, agreed w/resident/PA/MUD ANALYSIS OPERATOR, reviewed EMR data (avail), discussed w/nursing, discussed w/ case mgmt Attending Assessment/Plan: Vital Signs Date Time Temp Pulse Resp B/P Pulse O2 O2 Flow FiO2 Ox Delivery Rate 10/24 0652 97.5 96 18 120/80 95 Room Air 10/23 2235 97.7 88 20 108/68 93 Room Air Pt seen and examined. D/w pscyhiatrist substation electrician Dr Meek about benzodiazipine taper and dced pt on benzodiazipine taper. Pt will make appointment with her own psychiatrist RAYMUNDO by calling them tomorrow. Pt being dced home in stable condition and was cleared by psychaitry for discharge home.
== END 2016-10-24 12:00 | disposition home health service (06) | DRG 177 ==
LOC: ENRESERVTM → ENRESERVDT → ERH 09:59 → ERHI 13:24 → DELPENDDIS 13:24 → 2NA 13:24 → ENPENDDIS 13:24 → EDBEDREQ 17:07 → 2NA 18:01 → CRI 18:01 → 2NA 10-16 21:02
PROVIDERS: Internal Medicine; Physician Assistant Medical; Preventive Medicine Public Health & General Preventive Medicine; ADMIT Internal Medicine Pulmonary Disease
DX: J69.0 Pneumonitis due to inhalation of food and vomit (principal); G93.40 Encephalopathy, unspecified; N17.9 Acute kidney failure, unspecified; E87.0 Hyperosmolality and hypernatremia; E87.2 Acidosis; F10.239 Alcohol dependence with withdrawal, unspecified; F14.10 Cocaine abuse, uncomplicated; Y90.0 Blood alcohol level of less than 20 mg/100 ml; E86.1 Hypovolemia; E87.6 Hypokalemia; J44.9 Chronic obstructive pulmonary disease, unspecified; E03.9 Hypothyroidism, unspecified; R91.1 Solitary pulmonary nodule; F17.210 Nicotine dependence, cigarettes, uncomplicated; F41.8 Other specified anxiety disorders
CPT/HCPCS: 2NAP; 84133; 84300; CCU; 36415; 74176; 80307; 81001; 82436; 82570; 87040; 87086; 87804; 87804-59; 93005; 93010; 95816; 96360; 96361; 96374; 96375; 96376; 97110-GO; 97116-GO; 97162-GP; 97530-GO; 99232; 99291; G0480; J0131; J1650; J2310; J3370; J3490; J7040; J7060